=== PATIENT | male | born 1945 | race Caucasian/White ===

== ENCOUNTER 2019-06-10 02:51 | Observation (INO) ==
[2019-06-10 03:15] LABS: Basophils # 0.1 K/mm3 (0-0.2); Basophils % 0.8 % (0.1-2.0); Eosinophils # 0.3 K/mm3 (0.0-0.4); Eosinophils % 4.9 % (0.1-12.0); Hematocrit 50.4 % (42.0-52.0); Hemoglobin 16.5 g/dL (14.1-18.0); Lymphocytes # 2.3 K/mm3 (0.7-4.5); Lymphocytes % 32.9 % (10-50); Mean Corpuscular HGB Conc 32.7 g/dL (31.8-35.4); Mean Corpuscular Volume 91.6 fl (80-94); Mean Platelet Volume 7.4 fl (7.4-10.4); Monocytes # 0.5 K/mm3 (0.1-1.0); Monocytes % 6.6 % (1.7-9.3); Neutrophils # 3.8 K/mm3 (1.8-7.8); Neutrophils % 54.8 % (37.0-80.0); Platelet Count 185 K/mm3 (142-424); Red Cell Distribution Width 13.3 % (11.5-17.5); White Blood Count 6.9 K/mm3 (4.8-10.8)
[2019-06-10 03:23] LABS: Anion Gap 13.4 mEq/L (5-15); Blood Urea Nitrogen 8 mg/dl (9-20); Calcium 9.3 mg/dl (8.4-10.2); Carbon Dioxide 27 mmol/L (22.0-30.0); Chloride 103 mmol/L (98-107); Glucose 92 mg/dl (74-100); Sodium 140 mmol/L (136-145)
[2019-06-10 04:52] LABS: Microscopic, Urine URINE MICROSCOPIC (MICROSCOPIC)
[2019-06-10 04:53] LABS: Appearance,Urine CLEAR (Clear); Bilirubin,Urine Negative (Negative); Blood, Urine Negative (Negative); Color,Urine YELLOW (Yellow); Glucose,Urine (UA) Negative (Negative); Ketones,Urine Negative (Negative); Leukocyte Esterase,Urine Negative (Negative); Protein,Urine Negative (Negative); Specific Gravity, Urine 1.015 (1.005-1.030)
[2019-06-10 04:55] LABS: WBC,Urine Occasional #/hpf (0-3)
--- NOTE | 2019-06-10 05:32 | Emergency Department Note ---
ED Disposition Clinical Impression: Chest pain Qualifiers: Chest pain type: precordial pain Qualified Code(s): R07.2 - Precordial pain Disposition: Admitted as Observation Condition on Discharge: Good Referrals: Provider,Referral, [Referring] - - Critical Care Critical Care Time: No Attestation: On 06/10/19, the high probability of a clinically significant, sudden or life threatening deterioration of the following system(s) required my full and direct attention, intervention and personal management. The time I documented below is in addition to time spent performing reported procedures but includes the following listed in this critical care notation. Medical Decision Making - Medical Records Medical records reviewed: Yes: I reviewed the patient's medical records. - [place] Inquiry Pt receiving controlled substance: No Vital Signs: 06/10/19 03:02 06/10/19 03:08 06/10/19 03:11 Temperature 97.5 F L Temperature Source Oral Pulse Rate [Right Brachial] 83 77 Respiratory Rate 16 Blood Pressure [Right Arm] 146/96 H 143/84 H 113/69 Blood Pressure Mean [Right Arm] 112 103 83 Blood Pressure Source [Right Arm] Automatic Cuff Automatic Cuff Automatic Cuff Blood Pressure Position [Right Arm] Sitting Sitting Sitting 02 Sat by Pulse Oximetry 99 Oxygen Delivery Method Room Air 06/10/19 03:32 Temperature 97.5 F L Temperature Source Oral Pulse Rate [Right Brachial] 68 Respiratory Rate 18 Blood Pressure [Right Arm] 126/76 Blood Pressure Mean [Right Arm] 92 Blood Pressure Source [Right Arm] Automatic Cuff Blood Pressure Position [Right Arm] 02 Sat by Pulse Oximetry 96 Oxygen Delivery Method Room Air - Lab Data Lab results reviewed: Yes: I reviewed the patient's lab results. Lab Results 06/10/19 03:06: WBC 6.9, RBC 5.50, Hgb 16.5, Hct 50.4, MCV 91.6, MCH 29.9, MCHC 32.7, RDW 13.3, Plt Count 185, MPV 7.4, Neut % (Auto) 54.8, Lymph % (Auto) 32.9, [place] % (Auto) 6.6, Eos % (Auto) 4.9, Baso % (Auto) 0.8, Neut # (Auto) 3.8, Lymph # (Auto) 2.3, [place] # (Auto) 0.5, Eos # (Auto) 0.3, Baso # (Auto) 0.1 06/10/19 03:06: Sodium 140, Potassium 3.4 L, Chloride 103, Carbon Dioxide 27, Anion Gap 13.4, BUN 8 L, Creatinine 0.90, Estimated Creat Clear 89, Estimated GFR 83, Est GFR ( Amer) 100, Glucose 92, Calcium 9.3, Troponin I < 0.01 06/10/19 04:24: Urine Color Yellow, Urine Appearance Clear, Urine pH 7.0, Ur Specific [place] 1.015, Urine Protein Negative, Urine Glucose (UA) Negative, Urine Ketones Negative, Urine Blood Negative, Urine Nitrate Negative, Urine Bilirubin Negative, Urine Urobilinogen 4.0, Ur Leukocyte Esterase Negative, Urine WBC Occasional Result diagrams: 06/10/19 03:06 06/10/19 03:06 Orders (Tests/Meds): ED MEDICATIONS Generic Name Dose Route Start Last Admin Trade Name Freq PRN Reason Stop Dose Admin Sodium Chloride 1,000 mls @ 999 mls/hr 06/10/19 03:15 06/10/19 03:26 Sod Chlor 0.9% 1000ml Bag IV 06/10/19 04:15 999 mls/hr .Q1H1M ELBA Administration Discontinued Medications Generic Name Dose Route Start Last Admin Trade Name Freq PRN Reason Stop Dose Admin Nitroglycerin 0.4 mg 06/10/19 03:07 06/10/19 03:26 Nitrostat 0.4mg Sl Tablet SL 06/10/19 03:08 0.4 mg ONCE ONE Administration Nitroglycerin 0.4 mg 06/10/19 03:49 06/10/19 03:51 Nitrostat 0.4mg Sl Tablet SL 06/10/19 03:50 0.4 mg ONCE ONE Administration ORDERS Category Date Time Status XR chest portable Stat Exams 06/10/19 03:07 Taken Troponin I Q3H Lab 06/10/19 06:15 Ordered Troponin I Q3H Lab 06/10/19 09:15 Ordered - Radiology Data #1 Image(s): Chest Image Reviewed: Yes I reviewed the patient's radiology image Preliminary Findings: Abnormal (cm) - ECG Data Tracing #1 Normal Sinus Rhythm: Yes Ischemic changes: non-specific ST-T wave changes Chest Pain HPI - General Chief Complaint: Chest Pain Stated Complaint: cp Time Seen by Provider: 06/10/19 03:40 Mode of Arrival: Wheelchair Source of Information: Patient, Medical Record Limitations: No Limitations Description of Symptoms (Recalled from ER Triage Doc. by RN): Patient reports centralized chest pain that started a couple of hours ago and woke he up form his sleep. Patient reports aching in both arms and a previous PA back in 2018. - History of Present Illness HPI narrative: acute onset of chest tightness which awoke pt and continued till given ntg in ed which relieved pain - hx of cabg in past MD complaint: chest pain indicative of cardiac Onset (ago): hour(s) Duration: now resolved Activity at onset: awoke with symptoms Pain location: substernal Severity: moderate Quality: tightness Pain radiation: none Relieving factors: nitroglycerin Risk Factors for CAD: Family Hx of CAD Treatments prior to or on arrival for Cardiac Chest Pain: none - OSIRIS Score for Non-Stemi Age of Patient: 70-79 years old Heart Rate: 70-89 bpm Systolic Blood Pressure: 140-159 mmHg Serum Creatinine: 0.80-1.19 mg/dl CHF [place] Class: I-No CHF Other Risk Factors: None Non-Stemi Risk Score: 115 - Related Data Prior Cardiac Testing/Procedures: CABG Home Medications Medication Instructions Recorded Confirmed Amlodipine Besylate [Amlodipine 10 mg PO DAILY 06/10/19 06/10/19 10mg Tab] Allergies Allergy/AdvReac Type Severity Reaction Status Date / Time No Known Allergies Allergy Verified 06/10/19 03:25 [facility] History - Hepatitis A Screen Drug use history?: No High risk sexual behaviors?: No History of sexually transmitted infection?: No Currently employed?: No Childcare worker?: No Do you have indoor plumbing?: Yes Do you have electricity?: Yes Attestation statement:: This patient has been screened for Hepatitis A risk factors. I have reviewed the patient's past medical history: Yes - Social History Alcohol Intake: never Occupational Status: retired ROS Obtained: Yes All systems reviewed & no additional complaints - Constitutional Constitutional: Denies fever(s) - Eyes Eyes: Denies change in vision - ENT Ears, Nose, Mouth, and Throat: Denies sore throat - Cardiovascular Cardiovascular: Reports as per HPI, Reports chest pain, Denies dyspnea, Denies radiating jaw, neck or arm pain - Respiratory Respiratory: No cough - Gastrointestinal Gastrointestingal: Denies: abdominal pain - Genitourinary Male Genitourinary: Denies flank pain - Musculoskeletal Musculoskeletal: Denies joint pain, Denies joint swelling - Integumentary/Breasts Skin/Breast: Denies rash - Neurologic Neurologic: Denies focal weakness, Denies seizure-like activity Physical Exam - General General appearance: alert - Head Head exam: normocephalic - Eye Eye exam: Present: PERRL, EOMI. Absent: scleral icterus - ENT ENT exam: Present: mucous membranes moist - Neck Neck exam: Present: trachea midline - Respiratory Respiratory exam: Present: normal lung sounds bilaterally. Absent: respiratory distress - Cardiovascular Cardiovascular exam: Present: regular rate, systolic murmur, +S4 - Abdominal Exam Abdominal exam: Present: soft - Extremities Exam Extremities exam: Present: full ROM - Neurological Exam Neurological exam: Present: alert, oriented X3, CN II-XII intact. Absent: motor sensory deficit - Psychiatric Psychiatric exam: Present: normal affect - Skin Skin exam: Absent: rash
[2019-06-10 06:14] LABS: Chol/HDL Ratio 3.6 (1-3.5)
--- NOTE | 2019-06-10 07:44 | Pharmacy Consult Notes ---
[facility] Pharmacy VTE Monitoring - Patient Demographics Admission date: 06/10/19 Report Date: 06/10/19 Time: 07:44 Allergies/Adverse Reactions: Patient Allergies No Known Allergies Allergy (Verified 06/10/19 03:25) Height: 1.83 m Weight: 102.058 kg Patient Problems: Current Active Problems Chest pain (Acute) - VTE Risk Labs: VTE Related Lab Results Hgb 16.5 g/dL (14.1-18.0) 06/10/19 03:06 Hct 50.4 % (42.0-52.0) 06/10/19 03:06 Plt Count 185 K/mm3 (142-424) 06/10/19 03:06 BUN 8 mg/dl (9-20) L 06/10/19 03:06 Creatinine 0.90 mg/dl (0.66-1.25) 06/10/19 03:06 Estimated Creat Clear 89 mL/min (50-200) 06/10/19 03:06 Was VTE Risk Assessment Performed: Yes VTE Score: 5 VTE Risk Level: Low Risk Clinical Trial Participant: No - Prophylaxis VTE Prophylaxis Ordered?: Yes Types of VTE Prophylaxis: TEDS Knee High
--- NOTE | 2019-06-10 07:51 | Consult Report ---
History of Present Illness Consult date: 06/10/19 Requesting physician: Valdemar George Consult reason: chest pain Chief complaint: chest pain Additional Medical History:: 1. CAD A. [facility], 05/2016, 1. The left main artery distal 40% stenosis 2. The left anterior descending artery has an ostial 70 extending into a proximal 80-90% focal stenosis. The mid LAD has an additional 50% eccentric stenosis preceded by a mild to moderate intramyocardial bridge 3. The circumflex artery is nondominant yet still large vessel and has an ostial 70 were sent stenosis 4. The right coronary artery is dominant and has mid vessel 40% nonflow limiting stenosis 5. The GRIER ventriculogram reveals normal 65% 6. The left ventricular end-diastolic pressure 10 to 15 mmHg IMPRESSION: 1. 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 Normal ejection fraction 4. Normal left ventricular end-diastolic pressure B. 2 vessel CABG, 2017, , Dr. Luciano 2. HTN 3. Remote tobacco use, approximately 7 yrs duration in his early 20's 4. History of right ankle injury and subsequent surgery with recurrent edema 5. First-degree AV block by EKG, 2019 History of present illness: 74-year-old white male with history of bypass 3 years ago presented to the emergency department via private vehicle for episode of chest discomfort that woke him from sleep. He describes it as a sharp pain substernally with some associated chest tightness and radiation to the arms bilaterally. He denies any jaw pain, neck pain, back pain nausea, vomiting or diaphoresis. 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 He denies tobacco use or history of diabetes. He maintains compliance with his medications. Patient was given nitroglycerin in the ER with subsequent resolution of symptoms. Initial troponin is normal and EKG is sinus rhythm with first-degree AV block but no acute ST segment changes. Patient was admitted for further evaluation. Cardiology consulted for evaluation recommendations. [facility] History Medical History: Reports:: Hyperlipidemia, Hypertension, Myocardial Infarction Denies:: Diabetes Mellitus Type 1, Diabetes Mellitus Type 2 *Have you ever received a pneumonia vaccine?: No *Have you received a flu vaccine this season?: No Laterality Cases: Left: Other Other Surgeries: Yes: CABG, Other (SURGERY ON LEFT ROTATOR CUFF) - *Social History Educational Level: Attended High School Smoking Status: Former smoker Alcohol Intake: never *Occupational Status:: retired Household Members: none *Travel in the last 8 weeks: None Family Hx:: No significant family history Meds Home Medications Medication Instructions Recorded Confirmed Type Amlodipine Besylate [Amlodipine 10 mg PO DAILY 06/10/19 06/10/19 History 10mg Tab] Aspirin [Aspirin 81mg chewable 81 mg PO DAILY 06/10/19 06/10/19 History tab] Allergies Allergy/AdvReac Type Severity Reaction Status Date / Time No Known Allergies Allergy Verified 06/10/19 03:25 Review of Systems - Review of Systems Review of systems:: pertinent systems reviewed and negative unless documented below - *Cardiovascular Reports chest pain, Denies shortness of breath - *Respiratory Denies cough, Denies shortness of breath - *Gastrointestinal Denies nausea - *Genitourinary Denies blood in urine - *Musculoskeletal Denies joint pain, Denies back pain - *Neurologic Denies localized weakness, Denies seizure-like activity Exam Vital signs and Labs for Last 24 Hours: Temp Pulse Resp BP Pulse Ox 98.0 F 70 17 134/75 98 06/10/19 06:14 06/10/19 06:19 06/10/19 06:14 06/10/19 06:14 06/10/19 06:06 Laboratory Results - last 24 hr 06/10/19 03:06: WBC 6.9, RBC 5.50, Hgb 16.5, Hct 50.4, MCV 91.6, MCH 29.9, MCHC 32.7, RDW 13.3, Plt Count 185, MPV 7.4, Neut % (Auto) 54.8, Lymph % (Auto) 32.9, [place] % (Auto) 6.6, Eos % (Auto) 4.9, Baso % (Auto) 0.8, Neut # (Auto) 3.8, Lymph # (Auto) 2.3, [place] # (Auto) 0.5, Eos # (Auto) 0.3, Baso # (Auto) 0.1 06/10/19 03:06: Sodium 140, Potassium 3.4 L, Chloride 103, Carbon Dioxide 27, Anion Gap 13.4, BUN 8 L, Creatinine 0.90, Estimated Creat Clear 89, Estimated GF R 83, Est GFR ( Amer) 100, Glucose 92, Calcium 9.3, Troponin I < 0.01 06/10/19 04:24: Urine Color Yellow, Urine Appearance Clear, Urine pH 7.0, Ur Specific [place] 1.015, Urine Protein Negative, Urine Glucose (UA) Negative, Urine Ketones Negative, Urine Blood Negative, Urine Nitrate Negative, Urine Bilirubin Negative, Urine Urobilinogen 4.0, Ur Leukocyte Esterase Negative, Urine WBC Occasional 06/10/19 05:32: Troponin I < 0.01 06/10/19 05:32: Magnesium 2.1, Triglycerides 49, Cholesterol 115 L, LDL Cholesterol Direct 72.91 L, VLDL Cholesterol 10, HDL Cholesterol 32 L, Cholesterol/HDL Ratio 3.6 H I & O for Last 24 hours: Intake & Output 06/07/19 06/08/19 06/09/19 06/10/19 11:59 11:59 11:59 11:59 Intake Total 1000 / 1000 Balance 1000 / 1000 Weight 225 lb - *Routine HEENT Exam Head: Present: normocephalic Eye: Present: EOMI, PERRL ENT: Present: mucous membranes moist - *Routine Neck Exam Present: supple. Absent: JVD, carotid bruit - *Routine Respiratory Exam Present: CTA bilaterally. Absent: accessory muscle use, rales, rhonchi, wheezes - *Routine Cardiovascular Exam Present: RRR. Absent: murmur, gallop, rubs - *Routine Abdominal Exam Present: soft. Absent: tenderness, distended, guarding - *Routine Extremities Exam Present: edema. Absent: calf tenderness - *Routine Neurological Exam Present: alert, oriented X3, moving all extremities Assessment and Plan (1) Chest pain Current visit: Yes Status: Acute Qualifiers: Chest pain type: precordial pain Qualified Code(s): R07.2 - Precordial pain Category: Medical Code(s): R07.9 - Chest pain, unspecified (2) CAD (coronary artery disease) Current visit: Yes Status: Acute Category: Medical Code(s): I25.10 - Atherosclerotic heart disease of [place] coronary artery without angina pectoris (3) Hypertension Current visit: Yes Status: Acute Category: Medical Code(s): I10 - Essential (primary) hypertension (4) Hyperlipidemia Current visit: Yes Status: Acute Category: Medical Code(s): E78.5 - Hyperlipidemia, unspecified - Assessment and plan all Dx Assessment and Plan for all problems:: 1. Chest pain reminiscent of his prior angina before his bypass which esolved with sublingual nitroglycerin. Initial troponin is normal, EKG without acute changes and patient has been active without exertional symptoms recently. Echocardiogram pending this morning but if normal, would favor medical therapy with additional treatment including PPI for possible reflux or GERD. Patient is on amlodipine therapy along with aspirin therapy, would recommend addition of beta-mitch to his medical regimen. If second troponin is normal patient could be discharged home for follow-up as an outpatient. 2. Hyperlipidemia, recommend addition of statin therapy if tolerable.
--- NOTE | 2019-06-10 07:54 | History & Physical Report ---
*Admission Date: 06/10/19 *Chief complaint: Chest pain *History of present illness: 74-year-old white male with history of two-vessel bypass 3 years ago presented to the emergency department via private vehicle for episode of chest discomfort that woke him from sleep around 2 AM. He describes it as a sharp pain substernally with some associated chest tightness and radiation to the arms bilaterally. Chest pain resolved with a single dose of nitroglycerin. He denies any jaw pain, neck pain, back pain nausea, vomiting or diaphoresis. 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 He denies tobacco use or history of diabetes. He maintains compliance with his medications. Patient was given nitroglycerin in the ER with subsequent resolution of symptoms. Initial troponin is normal and EKG is sinus rhythm with first-degree AV block but no acute ST segment changes. [facility] History I have reviewed the patient's past medical history: Yes Medical History: Reports:: Hyperlipidemia, Hypertension, Myocardial Infarction Denies:: Diabetes Mellitus Type 1, Diabetes Mellitus Type 2 *Have you ever received a pneumonia vaccine?: No *Have you received a flu vaccine this season?: No Laterality Cases: Left: Other Other Surgeries: Yes: CABG (Two-vessel), Other (SURGERY ON LEFT ROTATOR CUFF) - *Social History Educational Level: Attended High School Smoking Status: Former smoker Alcohol Intake: never *Occupational Status:: retired Household Members: none *Travel in the last 8 weeks: None Family Hx:: Non-contributory Review of Systems - Review of Systems Review of systems:: pertinent systems reviewed and negative unless documented below - Constitutional Denies body ache(s), Denies chills - *Cardiovascular Reports chest pain, Reports chest pain at rest, Reports leg swelling (Chronic in the right lower leg), Denies chest pain with activity, Denies leg pain with activity, Denies shortness of breath, Denies shortness of breath with activity - *Respiratory Denies change in phlegm color, Denies chest congestion, Denies cough, Denies shortness of breath - *Gastrointestinal Denies abdominal pain, Denies belching, Denies bloating - *Neurologic Denies localized weakness, Denies seizure-like activity Meds Home Medications Medication Instructions Recorded Confirmed Type Amlodipine Besylate [Amlodipine 10 mg PO DAILY 06/10/19 06/10/19 History 10mg Tab] Aspirin [Aspirin 81mg chewable 81 mg PO DAILY 06/10/19 06/10/19 History tab] Metoprolol Succinate [Toprol XL 25 mg PO DAILY #30 tab.er.24h 06/10/19 Rx 25mg tablet] Nitroglycerin 0.4 mg SL Q5MINP PRN #30 tab.subl 06/10/19 Rx Allergies Allergy/AdvReac Type Severity Reaction Status Date / Time No Known Allergies Allergy Verified 06/10/19 03:25 Exam Vital signs and Labs for Last 24 Hours: Temp Pulse Resp BP Pulse Ox 98.0 F 70 17 134/75 98 06/10/19 06:14 06/10/19 06:19 06/10/19 06:14 06/10/19 06:14 06/10/19 06:06 Laboratory Results - last 24 hr 06/10/19 03:06: WBC 6.9, RBC 5.50, Hgb 16.5, Hct 50.4, MCV 91.6, MCH 29.9, MCHC 32.7, RDW 13.3, Plt Count 185, MPV 7.4, Neut % (Auto) 54.8, Lymph % (Auto) 32.9, [place] % (Auto) 6.6, Eos % (Auto) 4.9, Baso % (Auto) 0.8, Neut # (Auto) 3.8, Lymph # (Auto) 2.3, [place] # (Auto) 0.5, Eos # (Auto) 0.3, Baso # (Auto) 0.1 06/10/19 03:06: Sodium 140, Potassium 3.4 L, Chloride 103, Carbon Dioxide 27, Anion Gap 13.4, BUN 8 L, Creatinine 0.90, Estimated Creat Clear 89, Estimated GFR 83, Est GFR ( Amer) 100, Glucose 92, Calcium 9.3, Troponin I < 0.01 06/10/19 04:24: Urine Color Yellow, Urine Appearance Clear, Urine pH 7.0, Ur Specific [place] 1.015, Urine Protein Negative, Urine Glucose (UA) Negative, Urine Ketones Negative, Urine Blood Negative, Urine Nitrate Negative, Urine Bilirubin Negative, Urine Urobilinogen 4.0, Ur Leukocyte Esterase Negative, Urine WBC Occasional 06/10/19 05:32: Troponin I < 0.01 06/10/19 05:32: Magnesium 2.1, Triglycerides 49, Cholesterol 115 L, LDL Cholesterol Direct 72.91 L, VLDL Cholesterol 10, HDL Cholesterol 32 L, Cholesterol/HDL Ratio 3.6 H I & O for Last 24 hours: Intake & Output 06/07/19 06/08/19 06/09/19 06/10/19 11:59 11:59 11:59 11:59 Intake Total 1000 / 1000 Balance 1000 / 1000 Weight 225 lb - Constitutional no acute distress - *Routine HEENT Exam Head: Present: normocephalic Eye: Present: EOMI ENT: Present: mucous membranes moist - *Routine Neck Exam Present: supple, full ROM. Absent: JVD, carotid bruit - *Routine Respiratory Exam Present: CTA bilaterally - *Routine Cardiovascular Exam Present: RRR, Normal S1, Normal S2 - *Routine Abdominal Exam Present: soft, normoactive bowel sounds - *Routine Extremities Exam Present: edema (trace right ankle), pulses intact. Absent: calf tenderness - *Routine Skin Exam Present: intact - *Routine Neurological Exam Present: alert, oriented X3, CN II-XII intact Assessment and Plan (1) Chest pain Status: Acute Qualifiers: Chest pain type: precordial pain Qualified Code(s): R07.2 - Precordial pain Category: Medical Code(s): R07.9 - Chest pain, unspecified (2) CAD (coronary artery disease) Status: Acute Category: Medical Code(s): I25.10 - Atherosclerotic heart disease of [place] coronary artery without angina pectoris (3) Hypertension Status: Acute Category: Medical Code(s): I10 - Essential (primary) hypertension - Assessment and plan all Dx Assessment and Plan for all problems:: 1. Serial tones to rule out [place] 2. Echocardiogram 3. Cardiology consulted and appreciate the recommendations. If patient rules out for [place] and ejection fraction is normal will discharge home with addition of beta-blockers and PRN nitroglycerin
--- NOTE | 2019-06-10 10:41 | Discharge Summary ---
General - General Admission date:: 06/10/19 Discharge date: 06/10/19 HPI HPI: 74-year-old white male with history of two-vessel bypass 3 years ago presented to the emergency department via private vehicle for episode of chest discomfort that woke him from sleep around 2 AM. He describes it as a sharp pain substernally with some associated chest tightness and radiation to the arms bilaterally. Chest pain resolved with a single dose of nitroglycerin. He denies any jaw pain, neck pain, back pain nausea, vomiting or diaphoresis. 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 He denies tobacco use or history of diabetes. He maintains compliance with his medications. Patient was given nitroglycerin in the ER with subsequent resolution of symptoms. Initial troponin is normal and EKG is sinus rhythm with first-degree AV block but no acute ST segment changes. Hospital Course Hospital Course: Patient was admitted. He ruled out for NH with serial troponins. Echocardiogram showed EF 45-50%. Cardiology was consulted and redommendations were made. Zana was discharged to home with medication changes. Follow up in 3 days Objective Vital signs: Temp Pulse Resp BP Pulse Ox 98 F 67 16 144/88 H 97 06/10/19 08:00 06/10/19 08:00 06/10/19 08:00 06/10/19 08:00 06/10/19 08:00 no acute distress - *Routine HEENT Exam Head: Present: normocephalic Eye: Present: EOMI, PERRL ENT: Present: mucous membranes moist - *Routine Neck Exam Present: supple - *Routine Respiratory Exam Present: CTA bilaterally - *Routine Cardiovascular Exam Present: RRR - *Routine Abdominal Exam Present: soft, normoactive bowel sounds. Absent: tenderness - *Routine Extremities Exam Absent: cyanosis, clubbing, edema - *Routine Skin Exam Present: warm. Absent: rash Results Labs on day of discharge: Labs from last 24 hours 06/10/19 06/10/19 06/10/19 09:00 05:32 05:32 WBC RBC Hgb Hct MCV MCH MCHC RDW Plt Count MPV Neut % (Auto) Lymph % (Auto) Isabella % (Auto) Eos % (Auto) Baso % (Auto) Neut # (Auto) Lymph # (Auto) Isabella # (Auto) Eos # (Auto) Baso # (Auto) Sodium Potassium Chloride Carbon Dioxide Anion Gap BUN Creatinine Estimated Creat Clear Estimated GFR Est GFR ( Amer) Glucose Calcium Magnesium 2.1 Troponin I < 0.01 < 0.01 Triglycerides 49 Cholesterol 115 L LDL Cholesterol Direct 72.91 L VLDL Cholesterol 10 HDL Cholesterol 32 L Cholesterol/HDL Ratio 3.6 H Urine Color Urine Appearance Urine pH Ur Specific [place] Urine Protein Urine Glucose (UA) Urine Ketones Urine Blood Urine Nitrate Urine Bilirubin Urine Urobilinogen Ur Leukocyte Esterase Urine WBC 06/10/19 06/10/19 06/10/19 04:24 03:06 03:06 WBC 6.9 RBC 5.50 Hgb 16.5 Hct 50.4 MCV 91.6 MCH 29.9 MCHC 32.7 RDW 13.3 Plt Count 185 MPV 7.4 Neut % (Auto) 54.8 Lymph % (Auto) 32.9 Isabella % (Auto) 6.6 Eos % (Auto) 4.9 Baso % (Auto) 0.8 Neut # (Auto) 3.8 Lymph # (Auto) 2.3 Isabella # (Auto) 0.5 Eos # (Auto) 0.3 Baso # (Auto) 0.1 Sodium 140 Potassium 3.4 L Chloride 103 Carbon Dioxide 27 Anion Gap 13.4 BUN 8 L Creatinine 0.90 Estimated Creat Clear 89 Estimated GFR 83 Est GFR ( Amer) 100 Glucose 92 Calcium 9.3 Magnesium Troponin I < 0.01 Triglycerides Cholesterol LDL Cholesterol Direct VLDL Cholesterol HDL Cholesterol Cholesterol/HDL Ratio Urine Color Yellow Urine Appearance Clear Urine pH 7.0 Ur Specific [place] 1.015 Urine Protein Negative Urine Glucose (UA) Negative Urine Ketones Negative Urine Blood Negative Urine Nitrate Negative Urine Bilirubin Negative Urine Urobilinogen 4.0 Ur Leukocyte Esterase Negative Urine WBC Occasional DS: Diagnosis - Discharge Diagnosis (1) Chest pain Status: Acute (2) CAD (coronary artery disease) Status: Acute (3) Hypertension Status: Acute (4) Hyperlipidemia Status: Acute Discharge Plan - Patient Discharge Instructions ACTIVITY: Continue current activity DIET: continue same diet Patient Instructions: DI for Chest Pain - Follow up Plan Follow up with: Valdemar George MD [Primary Care Provider] - 06/13/19 Disposition: Home, Self-[facility] Medications: Home Medications Medication Instructions Recorded Confirmed Type Amlodipine Besylate [Amlodipine 10 mg PO DAILY 06/10/19 06/10/19 History 10mg Tab] Aspirin [Aspirin 81mg chewable 81 mg PO DAILY 06/10/19 06/10/19 History tab] Metoprolol Succinate [Toprol XL 25 mg PO DAILY #30 tab.er.24h 06/10/19 Rx 25mg tablet] Nitroglycerin 0.4 mg SL Q5MINP PRN #30 tab.subl 06/10/19 Rx Prescriptions/Medication Reconciliation: New Nitroglycerin 0.4 mg SL Q5MINP PRN #30 tab.subl PRN Reason: Chest Pain Metoprolol Succinate [Toprol XL 25mg tablet] 25 mg PO DAILY #30 tab.er.24h Continued Aspirin [Aspirin 81mg chewable tab] 81 mg PO DAILY Amlodipine Besylate [Amlodipine 10mg Tab] 10 mg PO DAILY - Problem Reconciliation Problems Reviewed?: Yes
--- NOTE | 2019-06-10 17:32 | Cardiology Report ---
APPROVED REPORT EXAM: Comprehensive 2D, Doppler, and color-flow Echocardiogram Concert [facility] Manager: Kimberly Butcher CRT Ht: 6 ft 0 in Wt: 210lbs BSA: 2.18 BP: 113/69 mmHg Indications: Hyperlipidemia, Hypertension/HDD, CABG 2D Dimensions LVOT 2.03 cm (M/F) 1.5-2.5 M-Mode Dimensions RVDd 4.17 cm (0.9-2.6)LVDd 4.09 cm (3.5-5.7) LVDs 2.89 cm (3.5-5.7)IVSd 2.49 cm (0.6-1.1) PWd 0.60 cm (0.6-1.1)EF (Teich) 56.80% FS 29.30% EDV (Teich) 73.80 mL ESV (Teich) 31.90 mL LV Diastology E/A Ratio 0.72 Mitral Valve MV A Velocity 79.00 (40-130 cm/s) Left Ventricle Left atrium is mildly enlarged, left ventricle is normal size, mild concentric left ventricular hypertrophy, visually estimated ejection fraction 55% with no regional wall motion abnormality, endocardial surfaces are poorly visualized, there is abnormal septal motion, grade 1 diastolic dysfunction seen without tissue Doppler evidence of raise left atrial pressure. Right Ventricle Right atrium and right ventricular normal size and contractility. Aortic Valve Aortic valve is minimally thickened and fibrosed, there is no aortic stenosis or aortic insufficiency. Mitral Valve Mitral valve is minimally thickened, there is mild mitral regurgitation. Tricuspid Valve Tricuspid valve is grossly normal, there is mild tricuspid regurgitation, tricuspid regurgitation jet velocity is inadequate for calculation of the right ventricular systolic pressure. Pulmonic Valve Pulmonic valve is poorly visualized. Great Vessels Aortic root is normal size. Pericardium No significant pericardial effusion noted. Conclusion 1. Mildly enlarged left atrium, normal left ventricular size, mild concentric left ventricular hypertrophy, visually estimated ejection fraction of 55%, there is abnormal septal motion, grade 1 diastolic dysfunction seen without tissue Doppler evidence of raise left atrial pressure. 2. Mild mitral and tricuspid regurgitation. 3. No significant pericardial effusion noted. Electronically signed by : Vinay Zarco, 06/10/2019 17:32:11
--- NOTE | 2019-06-11 08:10 | Electrocardiograph Report ---
APPROVED REPORT Exam: Resting ECG HR:81 bpm ECG Measurements Heart Rate 81 AXES NM 216 P 20 QRSd 100 QRS 13 QT 386 T-22 QTc 448 <Conclusion> Sinus rhythm with 1st degree AV block Isolated, nonsignificant Q waves in III and aVF Abnormal ECG Electronically signed by : Valdemar Acosta, 06/11/2019 08:09:52
== END 2019-06-10 13:00 | disposition home or self-care (01) ==
LOC: 2ND 02:51 → ER 02:51 → 2ND 06:16
PROVIDERS: ADMIT Emergency Medicine; ATTEND Family Medicine
CPT/HCPCS: 36415; 71010; 71045; 80048; 80061; 81001; 83735; 84484; 85025; 93005; 93306; 96365; 99284; G0378

== ENCOUNTER 2021-10-05 11:07 | Emergency (ER) | payer MEDICARE, OTHER, SELFPAY ==
[2021-10-05 11:08] VITALS: BP 169/100; PULSE 75; RESP 20; TEMP 36.6; O2SAT 98; BMI 31.1
--- NOTE | 2021-10-05 11:17 | CT_ITS ---
FINAL REPORT TECHNIQUE: Axial CT images of the abdomen and pelvis were obtained without intravenous contrast. Coronal reformatted images were also obtained.This study was performed with techniques to keep radiation doses as low as reasonably achievable (ALARA). Individualized dose reduction techniques using automated exposure control or adjustment of mA and/or kV according to the patient's size were employed. CLINICAL HISTORY: left flank pain, difficulty urinating COMPARISON: 01/08/2016 FINDINGS: Abdomen: There is a 5 mm right lower lobe pulmonary nodule which was not seen on the prior exam. There is rounded atelectasis in the left lower lobe. There is bilateral, left greater than right, mild to moderate hydronephrosis. There are no obstructing renal stones. A hypodense left renal lesion is unchanged and likely a cyst. The gallbladder is surgically absent. The spleen is enlarged measuring 15 cm in length. The remaining solid organs have an unremarkable, unenhanced appearance. No lymphadenopathy or ascites is seen. No inflammatory process is identified. There is no evidence of small-bowel obstruction. Pelvis: The appendix is normal. There is diverticulosis without evidence of diverticulitis. Images of the pelvis reveal no evidence of ureteral dilation or ureteral stone. The urinary bladder is distended, extending into the lower abdomen. There are several small stones layering in the posterior urinary bladder. The prostate is very large and pressing on the bladder base. There is no pelvic lymphadenopathy or free fluid. On the bone window images there is a sclerotic lesion in the left sacrum which is stable. IMPRESSION: 1. Bilateral [id number] hydronephrosis to the level of a very distended urinary bladder. No obstructing stone 2. Very large prostate. Recommend correlation with PSA. 3. Small bladder stones. 4. Splenomegaly. Reviewed, Interpreted and Dictated by Roberta Stinson MD Transcribed by Danitza Epstein Authenticated and [facility]
--- NOTE | 2021-10-05 11:19 | HMH.EDGENADL ---
ED Disposition Clinical Impression: Urinary retention, Prostate hyperplasia with urinary obstruction Disposition: Home, Self-Care Condition on Discharge: Good Instructions: How to Care for Your Mcknight Catheter -- Male, DI for Urinary Retention in Men Additional Instructions: follow up urology call for appt Prescriptions: Tamsulosin HCl [Flomax 0.4mg capsule] 0.4 mg PO HS #15 cap Transmission Status: Pending to [facility] #[id number] Referrals: Db Gipson MD [Primary Care Provider] - Jean Paul Vázquez MD [Staff Physician] - - Critical Care Critical Care Time: No Attestation: On 10/05/21, the high probability of a clinically significant, sudden or life threatening deterioration of the following system(s) required my full and direct attention, intervention and personal management. The time I documented below is in addition to time spent performing reported procedures but includes the following listed in this critical care notation. Medical Decision Making - Medical Records Medical records reviewed: Yes: I reviewed the patient's medical records. - Jaiden Inquiry Pt receiving controlled substance: No Vital Signs: 10/05/21 11:08 10/05/21 12:00 Temperature 97.9 F Temperature Source Oral Pulse Rate [Left Radial] 75 Respiratory Rate 20 Blood Pressure 117/72 Blood Pressure [Right Arm] 169/100 H Blood Pressure Mean 87 Blood Pressure Mean [Right Arm] 123 Blood Pressure Source [Right Arm] Automatic Cuff Blood Pressure Position [Right Arm] Sitting 02 Sat by Pulse Oximetry 98 Oxygen Delivery Method Room Air - Lab Data Lab Results 10/05/21 11:20: Sodium 139, Potassium 4.1, Chloride 104, Carbon Dioxide 29, Anion Gap 10.1, BUN 8 L, Creatinine 1.00, Estimated Creat Clear 89, Estimated GFR 73, Est GFR ( Amer) 88, Glucose 126 H, Calcium 9.2 10/05/21 11:20: WBC 5.8, RBC 5.24, Hgb 16.7, Hct 47.7, MCV 90.9, MCH 32.0 H, MCHC 35.1, RDW 13.2, Plt Count 189, MPV 7.2 L, Neut % (Auto) 74.8, Lymph % (Auto) 17.0, [place] % (Auto) 5.9, Eos % (Auto) 1.4, Baso % (Auto) 1.0, Neut # (Auto) 4.3, Lymph # (Auto) 1.0, [place] # (Auto) 0.3, Eos # (Auto) 0.1, Baso # (Auto) 0.1 10/05/21 11:35: Urine Color Yellow, Urine Appearance Clear, Urine pH 6.5, Ur Specific [place] 1.010, Urine Protein Negative, Urine Glucose (UA) Negative, Urine Ketones Negative, Urine Blood Negative, Urine Nitrate Negative, Urine Bilirubin Negative, Urine Urobilinogen 0.2, Ur Leukocyte Esterase Negative, Urine RBC None, Urine WBC None, Ur Squamous Epith Cells None, Urine Bacteria None Result diagrams: 10/05/21 11:20 10/05/21 11:20 Orders (Tests/Meds): ED MEDICATIONS Discontinued Medications Generic Name Dose Route Start Last Admin Trade Name Freq PRN Reason Stop Dose Admin Hydromorphone HCl 0.5 mg 10/05/21 11:17 10/05/21 12:34 Hydromorphone 2mg/Ml Syringe IV 10/05/21 11:18 Not Given ONCE ONE Ketorolac Tromethamine 30 mg 10/05/21 11:30 10/05/21 11:47 Ketorolac 30mg/Ml Vial IV 10/05/21 11:31 30 mg ONCE ONE Administration Ondansetron HCl 8 mg 10/05/21 11:18 10/05/21 11:47 Ondansetron 4mg/2ml Vial IV 10/05/21 11:19 8 mg ONCE ONE Administration - Reevaluation(s) Time: 12:34 (reeval, vss, appears well, abd s/nt, ok with plan to rx and f/u urology) General Adult HPI - General Stated complaint: kidney pain, unable to urinate Time Seen by Provider: 10/05/21 11:19 - History of Present Illness HPI narrative: mod to sev left low back pain assoc with urinary urgency and unable to urinate this am Onset (ago): hour(s) Radiation: non-radiation Severity: moderate Consistency: constant Exacerbating factors: none Associated symptoms: denies other symptoms - Related Data Home Medications Medication Instructions Recorded Confirmed Amlodipine Besylate [Amlodipine 10 mg PO DAILY 06/10/19 06/10/19 10mg Tab] Aspirin [Aspirin 81mg chewable 81 mg PO DAILY 06/10/19 06/10/19 tab] Pre
[2021-10-05 11:39] LABS: Basophils # 0.1 K/mm3 (0-0.2); Eosinophils # 0.1 K/mm3 (0.0-0.4); Eosinophils % 1.4 % (0.1-12.0); Hematocrit 47.7 % (42.0-52.0); Hemoglobin 16.7 g/dL (14.1-18.0); Mean Corpuscular HGB Conc 35.1 g/dL (31.8-35.4); Mean Corpuscular Volume 90.9 fl (80-94); Mean Platelet Volume 7.2 fl (7.4-10.4); Monocytes # 0.3 K/mm3 (0.1-1.0); Monocytes % 5.9 % (1.7-9.3); Neutrophils # 4.3 K/mm3 (1.8-7.8); Neutrophils % 74.8 % (37.0-80.0); Platelet Count 189 K/mm3 (142-424); Red Blood Count 5.24 M/mm3 (4.60-6.20); Red Cell Distribution Width 13.2 % (11.5-17.5); White Blood Count 5.8 K/mm3 (4.8-10.8)
[2021-10-05 11:44] LABS: Anion Gap 10.1 mEq/L (5-15); Blood Urea Nitrogen 8 mg/dl (9-20); Calcium 9.2 mg/dl (8.4-10.2); Carbon Dioxide 29 mmol/L (22.0-30.0); Chloride 104 mmol/L (98-107); Creatinine Clearance Estimated 89 mL/min (50-200); Estimated Glomerular Filt Rate 73 ml/min (>60); GFR (African American) 88 ML/MIN (>60); Glucose 126 mg/dl (74-100); Potassium 4.1 mmoL/L (3.5-5.1); Sodium 139 mmol/L (136-145)
--- NOTE | 2021-10-05 11:49 | PC.NURSE ---
pt had 900cc emptied after ham cath insertion, pt states he feels alot better
[2021-10-05 11:50] LABS: Appearance,Urine CLEAR (Clear); Bilirubin,Urine Negative (Negative); Blood, Urine Negative (Negative); Color,Urine YELLOW (Yellow); Glucose,Urine (UA) Negative (Negative); Ketones,Urine Negative (Negative); Leukocyte Esterase,Urine Negative (Negative); Microscopic, Urine URINE MICROSCOPIC (MICROSCOPIC); Nitrate,Urine Negative (Negative); PH,Urine 6.5 (5.0-8.5); Protein,Urine Negative (Negative); Urobilinogen,Urine 0.2 EU/dl (0.2)
--- NOTE | 2021-10-05 11:51 | PC.NURSE ---
talked with Neri LEES about further poc
[2021-10-05 12:00] VITALS: BP 117/72
--- NOTE | 2021-10-05 12:33 | PC.NURSE ---
ER MD at speaking with patient regarding test results, update on POC.
[2021-10-05 13:22] VITALS: BP 109/73; PULSE 64; RESP 18; TEMP 36.7; O2SAT 100
== END 2021-10-05 13:25 | disposition home or self-care (01) ==
PROVIDERS: Emergency Provider Emergency Medicine; PCP Family Medicine
DX: R33.8 Other retention of urine (principal); R39.15 Urgency of urination; N40.0 Benign prostatic hyperplasia without lower urinary tract symptoms; M54.50 Low back pain, unspecified; I10 Essential (primary) hypertension; I25.2 Old myocardial infarction; N23 Unspecified renal colic; E78.5 Hyperlipidemia, unspecified; Z95.1 Presence of aortocoronary bypass graft; Z79.82 Long term (current) use of aspirin; Z87.891 Personal history of nicotine dependence
CPT/HCPCS: 51702; 74176; 80048; 81001; 85025; 96374; 96375; 99285; J2405

== ENCOUNTER → 2021-10-19 15:00 | Outpatient (CLI) | payer MEDICARE, SELFPAY ==
[2021-10-19 18:46] LABS: Prostate Specific Ag Screen 8.7 ng/ml (0.0-4.0)
== END ==
PROVIDERS: PCP Family Medicine; Visit Provider Urology
DX: Z12.5 Encounter for screening for malignant neoplasm of prostate (principal)
CPT/HCPCS: 36415; G0103

== ENCOUNTER 2022-01-28 14:15 | Observation (INO) | payer MEDICARE, SELFPAY ==
[2022-01-28] VITALS (11 sets, daily range): BP systolic 86–155; BP diastolic 50–95; PULSE 60–85; RESP 12–20; TEMP 36.3–36.6; O2SAT 92–100; BMI 30.8; BMI 30.4
--- NOTE | 2022-01-28 14:12 | ECG_ITS ---
APPROVED REPORT Exam: Resting ECG HR:78 bpm ECG Measurements Heart Rate 78 AXES WA 195 P 7 QRSd 103 QRS 4 QT 377 T 16 QTc 411 Conclusion SINUS RHYTHM INFERIOR MYOCARDIAL INFARCTION , PROBABLY OLD [40+ ms Q WAVE AND/OR ST/T ABNORMALITY IN II/aVF] ABNORMAL ECG UNCONFIRMED REPORT Electronically signed by : Valdemar Acosta MD 01/29/2022 21:14:39
--- NOTE | 2022-01-28 14:21 | XR_ITS ---
FINAL REPORT CLINICAL HISTORY: chest pain COMPARISON: May 2019 FINDINGS: There is mild cardiomegaly. There are multiple sternotomy wires. The mediastinum is within normal limits. There are chronic changes in the lung bases. There is no acute cardiopulmonary process. There is no pleural effusion. There is no pneumothorax. The bony thorax is intact. IMPRESSION: No acute cardiopulmonary process. Reviewed, Interpreted and Dictated by Arnav Villafana MD Transcribed by Caio Garcia Authenticated and [facility]
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
[2022-01-28 14:30] LABS: Basophils # 0.1 K/mm3 (0-0.2); Basophils % 1.1 % (0.1-2.0); Eosinophils # 0.2 K/mm3 (0.0-0.4); Eosinophils % 3.4 % (0.1-12.0); Hematocrit 48.5 % (42.0-52.0); Hemoglobin 15.9 g/dL (14.1-18.0); Lymphocytes % 17.9 % (10-50); Mean Corpuscular HGB Conc 32.9 g/dL (31.8-35.4); Mean Corpuscular Hemoglobin 31.4 pg (27.0-31.2); Mean Corpuscular Volume 95.6 fl (80-94); Mean Platelet Volume 7.9 fl (7.4-10.4); Monocytes # 0.3 K/mm3 (0.1-1.0); Monocytes % 6.4 % (1.7-9.3); Neutrophils # 3.8 K/mm3 (1.8-7.8); Neutrophils % 71.1 % (37.0-80.0); Platelet Count 171 K/mm3 (142-424); Red Blood Count 5.07 M/mm3 (4.60-6.20); Red Cell Distribution Width 13.7 % (11.5-17.5); White Blood Count 5.3 K/mm3 (4.8-10.8)
[2022-01-28 14:38] LABS: Anion Gap 13.8 mEq/L (5-15); Blood Urea Nitrogen 9 mg/dl (9-20); Calcium 9.1 mg/dl (8.4-10.2); Carbon Dioxide 30 mmol/L (22.0-30.0); Chloride 100 mmol/L (98-107); Creatinine Clearance Estimated 80 mL/min (50-200); Estimated Glomerular Filt Rate 65 ml/min (>60); GFR (African American) 79 ML/MIN (>60); Glucose 129 mg/dl (74-100); Potassium 3.8 mmoL/L (3.5-5.1); Sodium 140 mmol/L (136-145)
--- NOTE | 2022-01-28 14:43 | PC.NURSE ---
1440- repeat bp after nitro SL x1 tablet 86/50 pt rating pain 4/10 notified ER MD of pt bp after nitro tablet x1 ER MD gave verbal order for IVF bolus NS 1L
--- NOTE | 2022-01-28 14:45 | PC.NURSE ---
notified CV lab of echo order
[2022-01-28 14:54] LABS: Troponin I < 0.01 ng/ml (0.00-0.034)
--- NOTE | 2022-01-28 14:55 | PC.NURSE ---
cv lab staff at for echo
--- NOTE | 2022-01-28 14:57 | PC.NURSE ---
formation testing operator paging dr. koch.
--- NOTE | 2022-01-28 14:59 | PC.NURSE ---
BENY EUBANKS speaking with dr. koch.
--- NOTE | 2022-01-28 15:09 | PC.NURSE ---
notified care management of admission, spoke with denzel. admitted per dr. hayes
[2022-01-28 15:25] LABS: Coronavirus 19, PCR Not Detected (NotDetected); Influenza A, PCR Not Detected (NotDetected); Influenza B, PCR Not Detected (NotDetected)
--- NOTE | 2022-01-28 15:37 | PC.NURSE ---
checked on pt at this time, notified pt we are waiting on covid swab results and then will get pt transferred to assigned room on second floor. Pt states no needs at this time. Call light within reach
--- NOTE | 2022-01-28 16:09 | PC.NURSE ---
report called to perry verdin states she will send staff down to transport pt.
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
[2022-01-28 19:21] LABS: Troponin I < 0.01 ng/ml (0.00-0.034)
--- NOTE | 2022-01-28 19:24 | PC.NURSE ---
Pt is a new admit. He tolerated his diet well. He took a shower once he was settled in. He has not complained of any pain, or need anything at this time. He walked to the bathroom independently.
[2022-01-28 22:16] LABS: Troponin I < 0.01 ng/ml (0.00-0.034)
[2022-01-29 01:00] VITALS: PULSE 80
[2022-01-29 04:01] VITALS: BP 106/69; PULSE 89; RESP 18; TEMP 36.5; O2SAT 94
[2022-01-29 04:05] VITALS: BMI 30.4
[2022-01-29 05:00] VITALS: PULSE 70
--- NOTE | 2022-01-29 06:08 | PC.NURSE ---
pt is A&OX4. no acute changes since previous assessment. no c/o chest pain this shift. CB in reach.
--- NOTE | 2022-01-29 07:14 | EXP.DC.SUM ---
General Admission date:: 01/28/22 Discharge date: 01/29/22 HPI HPI HPI: Mr. Whitney is a 76-year-old male with significant cardiac history. History of CABG, CAD, hypertension, hyperlipidemia, BPH who presented to the ER this afternoon with onset of chest pain. States he has had lower sternal pain since earlier this morning accompanied by shortness of breath and nausea. It began after a syncopal episode when he was trying to walk across the room. States he passed out and thinks he might have fallen forward. His slapped him around and woke him up . He was back to baseline mentation by the time he came to the ER. He has had a history of a heart attack with double bypass surgery 4 to 5 years ago. Surgery performed at . Pain is similar to his previous [place], has not seen a environmental services lead in several years and has not had problems since his bypass surgery. Does not take any nitroglycerin. Took aspirin at home because of the pain. Pain on arrival 09/19. Denies any radiation down his arms. No confusion, headache, diarrhea or vomiting. Initial troponin negative. Medicine consulted for admission and observation overnight with serial enzymes After arriving to the floor, states that he is feeling better with no pain at this time. Denies any shortness of breath. EKG reviewed, chronic changes but no acute ST abnormalities. Hospital Course Hospital Course Hospital Course: Mr. Whitney is a 76-year-old male with history of CABG 4 to 5 years ago at .? Admitted for anginal symptoms.? Monitored overnight on telemetry. No further events of chest pain. Serial troponins remained undetectable. No EKG changes on admission. At this time patient is medically stable for discharge home. Recommend follow-up with cardiology as an outpatient. Problems addressed as follows: Anginal pain History of CABG x2 CAD -Admitted for suspected anginal pain. Serial troponins monitored, undetectable. EKG reassuring on admission. Patient stable, continue home medication regimen. Plan for follow-up with cardiology in the coming weeks. Pain suspicious for noncardiac etiology, differential diagnosis includes GERD, musculoskeletal pain from fall/syncope, or other atypical chest pain. Hypertension: Continued home amlodipine and metoprolol Hyperlipidemia: Lipid panel obtained, LDL 87. Goal LDL less than 55. Increase Lipitor to 40 mg nightly. Needs repeat monitoring in 6 to 8 weeks. BPH: Asymptomatic, continue tamsulosin during hospitalization. Medically stable for discharge home. Updated on medication changes Exam Data for Last 24 hours Vital signs and Labs for Last 24 Hours: Temp Pulse Resp BP Pulse Ox 97.7 F 70 18 106/69 L 94 L 01/29/22 04:01 01/29/22 05:00 01/29/22 04:01 01/29/22 04:01 01/29/22 04:01 Laboratory Results - last 24 hr 01/28/22 14:00: SARS-CoV-2 (PCR) Not detected, Influenza A Untype (PCR) Not detected, Influenza Type B (PCR) Not detected 01/28/22 14:15: WBC 5.3, RBC 5.07, Hgb 15.9, Hct 48.5, MCV 95.6 H, MCH 31.4 H, MCHC 32.9, RDW 13.7, Plt Count 171, MPV 7.9, Neut % (Auto) 71.1, Lymph % (Auto) 17.9, Gibson % (Auto) 6.4, Eos % (Auto) 3.4, Baso % (Auto) 1.1, Neut # (Auto) 3.8, Lymph # (Auto) 1.0, Gibson # (Auto) 0.3, Eos # (Auto) 0.2, Baso # (Auto) 0.1 01/28/22 14:15: Sodium 140, Potassium 3.8, Chloride 100, Carbon Dioxide 30, Anion Gap 13.8, BUN 9, Creatinine 1.10, Estimated Creat Clear 80, Estimated GFR 65, Est GFR ( Amer) 79, Glucose 129 H, Calcium 9.1, Troponin I < 0.01 01/28/22 18:25: Troponin I < 0.01 01/28/22 21:44: Troponin I < 0.01 I & O for Last 24 hours: Intake & Output 01/26/22 01/27/22 01/28/22 01/29/22 23:59 23:59 23:59 23:59 Intake Total 240 / 240 Output Total 0 / 0 Balance 240 / 240 Weight 98.968 kg 98.6 kg Constitutional Constitutional: no acute distress, obese and chronically ill appearing *Routine HEENT Exam Head: Present normocephalic Eye: Present EOMI and PERRL ENT: Presen
[2022-01-29 08:00] VITALS: BP 120/63; PULSE 71; RESP 20; TEMP 36.6; O2SAT 95
[2022-01-29 08:08] LABS: Basophils # 0.1 K/mm3 (0-0.2); Eosinophils # 0.3 K/mm3 (0.0-0.4); Eosinophils % 5.6 % (0.1-12.0); Hematocrit 46.7 % (42.0-52.0); Hemoglobin 15.1 g/dL (14.1-18.0); Lymphocytes # 1.3 K/mm3 (0.7-4.5); Lymphocytes % 26.1 % (10-50); Mean Corpuscular HGB Conc 32.3 g/dL (31.8-35.4); Mean Corpuscular Volume 95.8 fl (80-94); Mean Platelet Volume 7.6 fl (7.4-10.4); Monocytes # 0.3 K/mm3 (0.1-1.0); Neutrophils % 61.2 % (37.0-80.0); Platelet Count 155 K/mm3 (142-424); Red Blood Count 4.87 M/mm3 (4.60-6.20); Red Cell Distribution Width 13.6 % (11.5-17.5); White Blood Count 4.9 K/mm3 (4.8-10.8)
[2022-01-29 08:17] LABS: Alanine Aminotransferase 24 U/L (12-78); Albumin Level 3.5 g/dl (3.5-5.0); Albumin/Globulin Ratio 1.2 (1.1-1.8); Alkaline Phosphatase 78 U/L (38-126); Anion Gap 14.7 mEq/L (5-15); Aspartate Amino Transferase 29 U/L (17-59); Bilirubin,Total 0.7 mg/dl (0.2-1.3); Blood Urea Nitrogen 10 mg/dl (9-20); Calcium 8.8 mg/dl (8.4-10.2); Carbon Dioxide 27 mmol/L (22.0-30.0); Chloride 103 mmol/L (98-107); Chol/HDL Ratio 5.2 (1-3.5); Cholesterol 151 mg/dl (140-200); Creatinine Clearance Estimated 81 mL/min (50-200); Estimated Glomerular Filt Rate 65 ml/min (>60); GFR (African American) 79 ML/MIN (>60); Glucose 117 mg/dl (74-100); HDL Cholesterol 29 mg/dl (40-60); Magnesium 2.2 mg/dl (1.6-2.3); Potassium 3.7 mmoL/L (3.5-5.1); Sodium 141 mmol/L (136-145); Total Protein,Serum 6.5 g/dl (6.3-8.2); Triglycerides 90 mg/dl (30-150); VLDL Cholesterol 18 mg/dL (0-40)
[2022-01-29 08:33] LABS: Direct LDL Cholesterol 87.78 mg/dL (100-129)
[2022-01-29 08:54] VITALS: BP 109/60; PULSE 66
--- NOTE | 2022-01-29 09:32 | EXP.DC.SUM ---
General Admission date:: 01/28/22 Discharge date: 01/29/22 HPI HPI HPI: Mr. Whitney is a 76-year-old male with significant cardiac history. History of CABG, CAD, hypertension, hyperlipidemia, BPH who presented to the ER this afternoon with onset of chest pain. States he has had lower sternal pain since earlier this morning accompanied by shortness of breath and nausea. It began after a syncopal episode when he was trying to walk across the room. States he passed out and thinks he might have fallen forward. His slapped him around and woke him up . He was back to baseline mentation by the time he came to the ER. He has had a history of a heart attack with double bypass surgery 4 to 5 years ago. Surgery performed at . Pain is similar to his previous [place], has not seen a patient relations coordinator in several years and has not had problems since his bypass surgery. Does not take any nitroglycerin. Took aspirin at home because of the pain. Pain on arrival 09/19. Denies any radiation down his arms. No confusion, headache, diarrhea or vomiting. Initial troponin negative. Medicine consulted for admission and observation overnight with serial enzymes After arriving to the floor, states that he is feeling better with no pain at this time. Denies any shortness of breath. EKG reviewed, chronic changes but no acute ST abnormalities. Exam Data for Last 24 hours Vital signs and Labs for Last 24 Hours: Temp Pulse Resp BP Pulse Ox 97.8 F 66 20 109/60 L 95 01/29/22 08:00 01/29/22 08:54 01/29/22 08:00 01/29/22 08:54 01/29/22 08:00 Laboratory Results - last 24 hr 01/28/22 14:00: SARS-CoV-2 (PCR) Not detected, Influenza A Untype (PCR) Not detected, Influenza Type B (PCR) Not detected 01/28/22 14:15: WBC 5.3, RBC 5.07, Hgb 15.9, Hct 48.5, MCV 95.6 H, MCH 31.4 H, MCHC 32.9, RDW 13.7, Plt Count 171, MPV 7.9, Neut % (Auto) 71.1, Lymph % (Auto) 17.9, Kaufman % (Auto) 6.4, Eos % (Auto) 3.4, Baso % (Auto) 1.1, Neut # (Auto) 3.8, Lymph # (Auto) 1.0, Kaufman # (Auto) 0.3, Eos # (Auto) 0.2, Baso # (Auto) 0.1 01/28/22 14:15: Sodium 140, Potassium 3.8, Chloride 100, Carbon Dioxide 30, Anion Gap 13.8, BUN 9, Creatinine 1.10, Estimated Creat Clear 80, Estimated GFR 65, Est GFR ( Amer) 79, Glucose 129 H, Calcium 9.1, Troponin I < 0.01 01/28/22 18:25: Troponin I < 0.01 01/28/22 21:44: Troponin I < 0.01 01/29/22 07:56: WBC 4.9, RBC 4.87, Hgb 15.1, Hct 46.7, MCV 95.8 H, MCH 31.0, MCHC 32.3, RDW 13.6, Plt Count 155, MPV 7.6, Neut % (Auto) 61.2, Lymph % (Auto) 26.1, Kaufman % (Auto) 6.0, Eos % (Auto) 5.6, Baso % (Auto) 1.0, Neut # (Auto) 3.0, Lymph # (Auto) 1.3, Kaufman # (Auto) 0.3, Eos # (Auto) 0.3, Baso # (Auto) 0.1 01/29/22 07:56: Sodium 141, Potassium 3.7, Chloride 103, Carbon Dioxide 27, Anion Gap 14.7, BUN 10, Creatinine 1.10, Estimated Creat Clear 81, Estimated GFR 65, Est GFR ( Amer) 79, Glucose 117 H, Calcium 8.8, Magnesium 2.2, Total Bilirubin 0.7, AST 29, ALT 24, Alkaline Phosphatase 78, Total Protein 6.5, Albumin 3.5, Globulin 3.0, Albumin/Globulin Ratio 1.2, Triglycerides 90, Cholesterol 151, LDL Cholesterol Direct 87.78 L, VLDL Cholesterol 18, HDL Cholesterol 29 L, Cholesterol/HDL Ratio 5.2 H I & O for Last 24 hours: Intake & Output 01/26/22 01/27/22 01/28/22 01/29/22 11:59 11:59 11:59 11:59 Intake Total 600 / 600 Output Total 0 / 0 Balance 600 / 600 Weight 217 lb 6 oz Results Data Completed and Pending Labs on day of discharge: Labs from last 24 hours 01/29/22 01/29/22 01/28/22 07:56 07:56 21:44 WBC 4.9 RBC 4.87 Hgb 15.1 Hct 46.7 MCV 95.8 H MCH 31.0 MCHC 32.3 RDW 13.6 Plt Count 155 MPV 7.6 Neut % (Auto) 61.2 Lymph % (Auto) 26.1 Kaufman % (Auto) 6.0 Eos % (Auto) 5.6 Baso % (Auto) 1.0 Neut # (Auto) 3.0 Lymph # (Auto) 1.3 Kaufman # (Auto) 0.3 Eos # (Auto) 0.3 Baso # (Auto) 0.1 Sodium 141 Potassium 3.7 Chloride 103 Carbon Dioxide 27 Ani
--- NOTE | 2022-01-29 11:21 | PC.NURSE ---
pt is being discharged from the unit via private car. took all belongings with him and voiced understanding of all dc education and follow up appts. IV and telemetry discontinued prior to dc. has denies any pain or SOA since admission
--- NOTE | 2022-01-31 14:20 | CARE MANAGER ---
Spoke with patient for post-discharge phone interview, patient states that he is doing well and has no issues.
== END 2022-01-29 11:22 | disposition home or self-care (01) ==
LOC: ER 15:11 → 2ND 16:44
PROVIDERS: Admitting Provider Internal Medicine Adolescent Medicine; Emergency Provider Emergency Medicine; PCP Family Medicine; Visit Provider Internal Medicine Adolescent Medicine
DX: R07.2 Precordial pain (principal); I25.110 Atherosclerotic heart disease of native coronary artery with unstable angina pectoris; I10 Essential (primary) hypertension; E78.5 Hyperlipidemia, unspecified; N40.1 Benign prostatic hyperplasia with lower urinary tract symptoms; N13.8 Other obstructive and reflux uropathy; R55 Syncope and collapse; Z79.899 Other long term (current) drug therapy; Z95.1 Presence of aortocoronary bypass graft
CPT/HCPCS: G0378; G0379; 36415; 71045; 80048; 80053; 80061; 83735; 84484; 85025; 93005; 93306; C9803; U0003; U0005

== ENCOUNTER → 2022-02-25 06:28 | Outpatient (CLI) | payer MEDICARE, SELFPAY ==
--- NOTE | 2022-02-25 | CA_ITS ---
APPROVED REPORT Exam: Pharmacologic Technologist: Shellie Coughlin, Ht: 5 ft 10 in Wt: 218 lbs BSA: 2.17 m2 HR: 68 bpm BP: 124/79 mmHg Medical History Medical History: HTN, Hyperlipidemia Medications: Amlodipine,,,,, Potassium Chloride,,,,, Aspirin,,,,, Atorvastatin,,,,, TAMSULOSIN,,,,, Nitroglycerin,,,,, Fexofenadine,,,,, Cardiac Risk Factors: HTN, Hyperlipidemia, FHX of CAD Stress Test Details Test: LEXISCAN HR Resting HR: 69 bpm Max Heart Rate (APMHR): 144.455522 bpm Max HR Achieved: 95 bpm Target HR (85% APMHR): 122.139234 bpm % of APMHR: 65.97 Recovery HR: 75 bpm BP Resting BP: 124/79 mmHg Max BP: 124/79 mmHg Recovery BP: 101.0/71.0 mmHg ECG Clinical Exercise duration: 04:01 min Highest Stage Achieved: Exercise capacity: 1.0 METs Stress ECG Conclusion During lexiscan pt experinced SOA. No arrhythmias noted. <1.5mm ST changes. Test Summary REST . . . . . . . Sitting REST . . . . . . . Sitting REST 08:53 . . 69 . 124/ 79 . . Stage 1 01:00 . . 87 . . . . Stage 2 01:00 . . 94 . 96/ 63 . . Stage 3 01:00 . . 87 . 98/ 68 . . Stage 4 01:00 . . 84 . 107/ 63 . . Stage 4 01:01 . . 84 . 107/ 63 . Stop exercise at 04:01 RECOVERY 01:00 . . 85 . . . . RECOVERY 02:00 . . 85 . 101/ 71 . . RECOVERY 03:00 . . 82 . 103/ 65 . . Electronically signed by : Vinay Zarco MD 02/25/2022 12:24:40
--- NOTE | 2022-02-25 06:37 | NM_ITS ---
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 With Lexiscan, patient denied any complaint of chest pain. Electrocardiogram Resting electrocardiogram shows sinus rhythm, with Lexiscan there is less than 1.[address] segment depression noted from the baseline EKG. The EKG portion of the Lexiscan is nondiagnostic. Cardiac Stress and Resting SPECT Images: Cardiac Stress and Resting SPECT images were obtained using technetium 99m Myoview 31.7 mCi stress and 10.28 mCi at rest. Gated SPECT analysis of segmental wall motion and calculation of the ejection fraction also done. Prone images were also obtained. Cardiac stress and resting SPECT images show uniform myocardial activity without segmental perfusion abnormality, computer derived ejection fraction is 59% with no regional wall motion abnormality, right ventricle is normal size and contractility. Conclusion: 1. The EKG portion of the Lexiscan is nondiagnostic. 2. No scintigraphic evidence of reversible ischemia seen, computer derived ejection fraction is 59% with no regional wall motion abnormality, right ventricle is normal size and contractility. 3. Normal Lexiscan Myoview study. Electronically signed by : Vinay Zarco MD 02/25/2022 13:05:01
== END ==
PROVIDERS: PCP Family Medicine; Visit Provider Nurse Practitioner
DX: E78.5 Hyperlipidemia, unspecified (principal); I10 Essential (primary) hypertension; Z95.1 Presence of aortocoronary bypass graft; I20.8 Other forms of angina pectoris
CPT/HCPCS: 78452; 93017; A9502; J2785

== ENCOUNTER 2022-06-03 19:55 | Emergency (ER) | payer MEDICARE, SELFPAY ==
[2022-06-03 19:56] VITALS: BP 146/92; PULSE 72; RESP 17; TEMP 36.6; O2SAT 100; BMI 29.2
--- NOTE | 2022-06-03 20:16 | HMH.EDGENADL ---
Discharge Plan Disposition Patient Disposition: Home, Self-Care Condition: Good Prescriptions Prescriptions: New ciprofloxacin HCl [Cipro] 500 mg tablet 500 mg PO Q12H Qty: 20 0RF tamsulosin [Flomax] 0.4 mg capsule 0.4 mg PO DAILY Qty: 30 0RF No Action potassium chloride 20 mEq tablet extended release 20 meq PO DAILY fexofenadine 180 mg tablet 180 mg PO DAILY atorvastatin 40 mg tablet 40 mg PO DAILY Qty: 90 3RF tamsulosin 0.4 MG capsule 0.4 mg PO HS Qty: 15 0RF amlodipine 10 MG tablet 10 mg PO DAILY aspirin 81 MG tablet,chewable 81 mg PO DAILY nitroglycerin 0.4 MG tablet, sublingual 0.4 mg SL Q5MINP PRN (Reason: Chest Pain) Qty: 30 0RF Referrals Follow up/Referrals: Db Gipson MD [Primary Care Provider] - See instructions Clinical Impressions Clinical Impression: Acute urinary retention, Acute UTI Instructions Patient Instructions: DI for Urinary Tract Infection (UTI), DI for Urinary Tract Infection in Children Print Language Print Language: Ukrainian Discharge ED Provider: Lowell Smith General Adult HPI General Chief complaint: Urogenital-Male Stated complaint: lower Abd Pain Time Seen by Provider: 06/03/22 22:09 Mode of Arrival: Ambulatory Source of Information: Patient Limitations: No Limitations Description of Symptoms (Recalled from ER Triage Doc. by RN): pt to ED with urinary retention x 2 days. pt stated he ran out of flomax and cant get a refill until he sees urology in july 28 History of Present Illness HPI narrative: Patient presents to the emergency department with urinary retention. He has a history of this and recently was found to have no refills on his prescription of Flomax. He called his urologist to make an appointment however the patient started having urinary retention yesterday and has not peed since yesterday. He comes in with lower abdominal pressure. Denies any fever, chills, cough, congestion, nausea, vomiting. Related Data Home Medications Medication Instructions Recorded Confirmed amlodipine 10 mg tablet 10 mg PO DAILY BLOOD PRESSURE 06/10/19 03/10/22 aspirin 81 mg chewable tablet 81 mg PO DAILY HEART HEALTH 06/10/19 03/10/22 fexofenadine 180 mg tablet 180 mg PO DAILY 10/12/21 03/10/22 potassium chloride 20 mEq 20 meq PO DAILY 10/12/21 03/10/22 tablet,extended release Previous Rx's Medication Instructions Recorded nitroglycerin 0.4 mg sublingual 0.4 mg sublingual Q5MINP PRN Chest 06/10/19 tablet Pain ##30 tamsulosin 0.4 mg capsule 0.4 mg PO HS #15 caps 10/05/21 atorvastatin 40 mg tablet 40 mg PO DAILY #90 tabs 03/10/22 ciprofloxacin HCl 500 mg tablet 500 mg PO Q12H #20 tabs 06/03/22 (Cipro) tamsulosin 0.4 mg capsule (Flomax) 0.4 mg PO DAILY #30 caps 06/03/22 Allergies Allergy/AdvReac Type Severity Reaction Status Date / Time No Known Allergies Allergy Verified 03/10/22 13:52 [facility] Disclaimer: The information contained in this section may have been updated after the patient was seen, as this information can be updated by other users. Medical History Coronary artery disease History of heart attack Typical angina Surgical History History of ankle surgery History of coronary artery bypass graft Hx of shoulder surgery Status post double vessel coronary artery bypass Family History Other Bone cancer Family history of COPD (chronic obstructive pulmonary disease) Family history of acute heart failure Family history of diabetes mellitus type II Stomach cancer Social History Smoking Status: Never smoker alcohol intake: never substance use type: denies use current occupational status: retired Travel in the last 8 weeks: None household members: none hous
--- NOTE | 2022-06-03 20:19 | PC.NURSE ---
uro jet administered for comfort at this time
--- NOTE | 2022-06-03 20:25 | PC.NURSE ---
ham catheter inserted at this time.
[2022-06-03 20:34] LABS: Microscopic, Urine URINE MICROSCOPIC (MICROSCOPIC)
[2022-06-03 20:55] LABS: Appearance,Urine CLOUDY (Clear); Blood, Urine 3+ (Negative); Color,Urine BROWN (Yellow); Glucose,Urine (UA) Negative (Negative); Ketones,Urine TRACE (Negative); Leukocyte Esterase,Urine 3+ (Negative); Nitrate,Urine POSITIVE (Negative); PH,Urine 6.5 (5.0-8.5); Protein,Urine 2+ (Negative)
[2022-06-03 21:09] LABS: Bilirubin,Urine 2+ (Negative)
[2022-06-03 21:59] LABS: RBC,Urine TNTC #/hpf (0-3)
[2022-06-03 22:00] LABS: Bacteria,Urine 1+ /lpf; Squamous Epithelial Cell,Urine Occasional #/hpf (0-5)
[2022-06-03 22:29] VITALS: BP 135/85; PULSE 70; RESP 18; TEMP 36.6; O2SAT 98
--- NOTE | 2022-06-03 22:45 | PC.NURSE ---
pt ham cath. switched over to a leg bag at this time. pt instructed on how to remove the ham cath at home if needed and was able to verbalize understanding and teach back.
== END 2022-06-03 22:48 | disposition home or self-care (01) ==
PROVIDERS: Emergency Provider Emergency Medicine; PCP Family Medicine
DX: N39.0 Urinary tract infection, site not specified (principal); R33.9 Retention of urine, unspecified; R10.30 Lower abdominal pain, unspecified
CPT/HCPCS: 51702; 81001; 87086; 87088; 96374; 99283; 99284

== ENCOUNTER 2022-06-14 20:55 | Emergency (ER) | payer MEDICARE, SELFPAY ==
[2022-06-14 20:57] VITALS: BMI 28.5
--- NOTE | 2022-06-14 21:14 | PC.NURSE ---
830 mL per bladder scan. Place ham per attending
--- NOTE | 2022-06-14 21:23 | PC.NURSE ---
Rounded on patient, patient voiced no concerns at this time.
[2022-06-14 21:26] LABS: Microscopic, Urine URINE MICROSCOPIC (MICROSCOPIC)
[2022-06-14 21:28] LABS: Appearance,Urine CLEAR (Clear); Bilirubin,Urine Negative (Negative); Blood, Urine Negative (Negative); Color,Urine YELLOW (Yellow); Glucose,Urine (UA) Negative (Negative); Ketones,Urine Negative (Negative); Leukocyte Esterase,Urine Negative (Negative); Nitrate,Urine Negative (Negative); Protein,Urine Negative (Negative); Specific Gravity, Urine 1.015 (1.005-1.030); Urobilinogen,Urine 0.2 EU/dl (0.2)
[2022-06-14 21:49] VITALS: BP 126/88; PULSE 81; RESP 17; TEMP 36.8; O2SAT 96
[2022-06-14 21:59] LABS: Squamous Epithelial Cell,Urine Occasional #/hpf (0-5)
== END 2022-06-14 21:50 | disposition home or self-care (01) ==
PROVIDERS: Emergency Provider Emergency Medicine; PCP Family Medicine
DX: Z53.21 Procedure and treatment not carried out due to patient leaving prior to being seen by health care provider (principal)
CPT/HCPCS: 51702; 81001; 99211

== ENCOUNTER 2022-06-29 18:21 | Emergency (ER) | payer MEDICARE, SELFPAY ==
[2022-06-29 18:22] VITALS: BP 130/74; PULSE 82; RESP 17; TEMP 36.6; O2SAT 98; BMI 27.6
--- NOTE | 2022-06-29 19:30 | HMH.EDGENADL ---
Discharge Plan Disposition Patient Disposition: Home, Self-Care Condition: Good Chief Complaint: Urogenital-Male Prescriptions Prescriptions: No Action potassium chloride 20 mEq tablet extended release 20 meq PO DAILY fexofenadine 180 mg tablet 180 mg PO DAILY atorvastatin 40 mg tablet 40 mg PO DAILY Qty: 90 3RF tamsulosin 0.4 MG capsule 0.4 mg PO HS Qty: 15 0RF amlodipine 10 MG tablet 10 mg PO DAILY aspirin 81 MG tablet,chewable 81 mg PO DAILY nitroglycerin 0.4 MG tablet, sublingual 0.4 mg SL Q5MINP PRN (Reason: Chest Pain) Qty: 30 0RF ciprofloxacin HCl [Cipro] 500 mg tablet 500 mg PO Q12H Qty: 20 0RF tamsulosin [Flomax] 0.4 mg capsule 0.4 mg PO DAILY Qty: 30 0RF Referrals Follow up/Referrals: Db Gipson MD [Primary Care Provider] - See instructions Clinical Impressions Clinical Impression: Acute urinary retention Discharge ED Provider: Salas Kennedy General Adult HPI General Chief complaint: Urogenital-Male Stated complaint: Cant pee Time Seen by Provider: 06/29/22 18:30 Mode of Arrival: Ambulatory Source of Information: Patient Limitations: No Limitations Description of Symptoms (Recalled from ER Triage Doc. by RN): pt to ED with chronic urinary retention. pt reports he recently had a catheter placed for two weeks and had it removed yesterday in Dr. Shultz office. pt reports he has dribbled some since yesterday but hasnt had a regukar void since. History of Present Illness HPI narrative: This is a 77-year-old male with history of BPH currently following with urology who is presenting with urinary retention. Patient states he last urinated around 2 AM on 06/29. Has not been able to urinate since. Has significant abdominal pain and distention. Had bladder catheter removed 2 days prior to arrival on 06/27 with urology and had Flomax increased, but has been urinating very little since that time. Denies fevers, chills, nausea, vomiting, dysuria, hematuria, or any other concerns. Related Data Home Medications Medication Instructions Recorded Confirmed amlodipine 10 mg tablet 10 mg PO DAILY BLOOD PRESSURE 06/10/19 03/10/22 aspirin 81 mg chewable tablet 81 mg PO DAILY HEART HEALTH 06/10/19 03/10/22 fexofenadine 180 mg tablet 180 mg PO DAILY 10/12/21 03/10/22 potassium chloride 20 mEq 20 meq PO DAILY 10/12/21 03/10/22 tablet,extended release Previous Rx's Medication Instructions Recorded nitroglycerin 0.4 mg sublingual 0.4 mg sublingual Q5MINP PRN Chest 06/10/19 tablet Pain ##30 tamsulosin 0.4 mg capsule 0.4 mg PO HS #15 caps 10/05/21 atorvastatin 40 mg tablet 40 mg PO DAILY #90 tabs 03/10/22 ciprofloxacin HCl 500 mg tablet 500 mg PO Q12H #20 tabs 06/03/22 (Cipro) tamsulosin 0.4 mg capsule (Flomax) 0.4 mg PO DAILY #30 caps 06/03/22 Allergies Allergy/AdvReac Type Severity Reaction Status Date / Time No Known Allergies Allergy Verified 03/10/22 13:52 [facility] Disclaimer: The information contained in this section may have been updated after the patient was seen, as this information can be updated by other users. Medical History Coronary artery disease History of heart attack Typical angina Surgical History History of ankle surgery History of coronary artery bypass graft Hx of shoulder surgery Status post double vessel coronary artery bypass Family History Other Bone cancer Family history of COPD (chronic obstructive pulmonary disease) Family history of acute heart failure Family history of diabetes mellitus type II Stomach cancer Social History Smoking Status: Never smoker alcohol intake: never substance use type: denies use current occupational status: retired Travel in the last 8 weeks: None
[2022-06-29 19:52] LABS: Microscopic, Urine URINE MICROSCOPIC (MICROSCOPIC)
[2022-06-29 19:53] LABS: Appearance,Urine CLOUDY (Clear); Bilirubin,Urine Negative (Negative); Blood, Urine 3+ (Negative); Color,Urine ORANGE (Yellow); Glucose,Urine (UA) Negative (Negative); Ketones,Urine Negative (Negative); Leukocyte Esterase,Urine TRACE (Negative); Nitrate,Urine Negative (Negative); Protein,Urine TRACE (Negative); Specific Gravity, Urine 1.015 (1.005-1.030); Urobilinogen,Urine 0.2 EU/dl (0.2)
[2022-06-29 19:56] VITALS: BP 159/79; PULSE 81; RESP 17; TEMP 36.9; O2SAT 97
--- NOTE | 2022-06-29 20:06 | PC.NURSE ---
changed patient from bsd to leg bag. 850 urine output noted.
[2022-06-29 20:12] LABS: Bacteria,Urine Trace /lpf; RBC,Urine TNTC #/hpf (0-3); Squamous Epithelial Cell,Urine Occasional #/hpf (0-5); WBC,Urine Occasional #/hpf (0-3); Yeast,Urine 4+ /lpf
== END 2022-06-29 20:07 | disposition home or self-care (01) ==
PROVIDERS: Emergency Provider Emergency Medicine; PCP Family Medicine
DX: N40.1 Benign prostatic hyperplasia with lower urinary tract symptoms (principal); R33.9 Retention of urine, unspecified
CPT/HCPCS: 51702; 81001; 99283

== ENCOUNTER → 2022-08-12 15:14 | Outpatient (CLI) | payer MEDICARE, SELFPAY ==
--- NOTE | 2022-08-12 15:21 | US_ITS ---
FINAL REPORT TECHNIQUE: Ultrasound images of the kidneys and bladder were obtained. CLINICAL HISTORY: ABDOMINAL PAIN FINDINGS: The right kidney measures 11.1 cm in length. It is normal in echogenicity. There is no hydronephrosis. The left kidney measures 12.2 cm in length. It is normal in echogenicity. There is no hydronephrosis. There is a well-circumscribed, anechoic left renal lesion measuring 4.4 cm consistent with benign cyst. The urinary bladder is unremarkable. IMPRESSION: No hydronephrosis. Benign left renal cyst. Reviewed, Interpreted and Dictated by Arnav Villafana MD Transcribed by Madiha Reynoso Authenticated and [facility]
== END ==
PROVIDERS: PCP Family Medicine; Visit Provider Urology
DX: R10.32 Left lower quadrant pain (principal)
CPT/HCPCS: 76770

== ENCOUNTER 2022-08-14 21:01 | Inpatient (IN) | payer MEDICARE, SELFPAY ==
[2022-08-14 21:31] VITALS: BP 108/65; BP 110/70; PULSE 83; PULSE 86; RESP 16; TEMP 39.2; O2SAT 95; O2SAT 98; BMI 25.7
--- NOTE | 2022-08-14 21:37 | XR_ITS ---
PROCEDURE INFORMATION: Exam: XR Chest Exam date and time: 08/14/22 09:38 PM Age: 77 years old Clinical indication: Fever TECHNIQUE: Imaging protocol: Radiologic exam of the chest. Views: 2 views. COMPARISON: CR XR CHEST PORTABLE 01/28/22 02:36 PM FINDINGS: Lungs: Hyperexpanded lungs without infiltrate. Pleural spaces: Unremarkable. No pleural effusion. No pneumothorax. Heart/Mediastinum: Unremarkable. No cardiomegaly. Bones/joints: Median sternotomy. IMPRESSION: Hyperexpanded lungs without infiltrate.
[2022-08-14 22:00] VITALS: BP 109/68; PULSE 80; O2SAT 94
[2022-08-14 22:10] LABS: Microscopic, Urine URINE MICROSCOPIC (MICROSCOPIC)
--- NOTE | 2022-08-14 22:10 | HMH.EDUROGM ---
Discharge Plan Disposition Patient Disposition: Admitted Chief Complaint: Urogenital-Male Prescriptions Prescriptions: No Action finasteride 5 mg tablet 5 mg PO DAILY Label Comments: TAKE 1 TABLET BY MOUTH DAILY potassium chloride 20 mEq tablet extended release 20 meq PO DAILY fexofenadine 180 mg tablet 180 mg PO DAILY atorvastatin 40 mg tablet 40 mg PO DAILY Qty: 90 3RF tamsulosin 0.4 MG capsule 0.4 mg PO HS Qty: 15 0RF amlodipine 10 MG tablet 10 mg PO DAILY aspirin 81 MG tablet,chewable 81 mg PO DAILY nitroglycerin 0.4 MG tablet, sublingual 0.4 mg SL Q5MINP PRN (Reason: Chest Pain) Qty: 30 0RF ciprofloxacin HCl [Cipro] 500 mg tablet 500 mg PO Q12H Qty: 20 0RF tamsulosin [Flomax] 0.4 mg capsule 0.4 mg PO DAILY Qty: 30 0RF Referrals Follow up/Referrals: Db Gipson MD [Primary Care Provider] - See instructions Jean Paul Vázquez MD [Referring] - See instructions Clinical Impressions Clinical Impression: Acute UTI, Acute pyelonephritis, Abscess of prostate, SIRS (systemic inflammatory response syndrome) Discharge ED Provider: Damaso (ED),Adrian Joaquin Male Urogenital HPI General Chief complaint: Urogenital-Male Stated complaint: losing weight, weak, slurred speech Time Seen by Provider: 08/14/22 22:05 Mode of Arrival: Wheelchair Source of Information: Patient, Relative and Medical Record Limitations: No Limitations Description of Symptoms (Recalled from ER Triage Doc. by RN): Patient arrives via wheelchair. Hx of prostate surgery 2 weeks ago. Generalized weakness since then. Son states that for the last few days patient has become increasingly weak, increased urinary frequency, nausea for the last two days with vomiting, confusion. Son said that he believed that the patients speech has been different since the surgery. History of Present Illness HPI Narrative: had recent prostate surg at [facility] with dr vázquez - [place] over night over the last few days has weakness and dec po intake - Onset (ago): day(s) Duration: intermittent Severity: moderate Reports nausea/vomiting Related Data Home Medications Medication Instructions Recorded Confirmed amlodipine 10 mg tablet 10 mg PO DAILY BLOOD PRESSURE 06/10/19 07/11/22 aspirin 81 mg chewable tablet 81 mg PO DAILY HEART HEALTH 06/10/19 07/11/22 fexofenadine 180 mg tablet 180 mg PO DAILY 10/12/21 07/11/22 potassium chloride 20 mEq 20 meq PO DAILY 10/12/21 07/11/22 tablet,extended release finasteride 5 mg tablet 5 mg PO DAILY 07/11/22 07/11/22 Previous Rx's Medication Instructions Recorded nitroglycerin 0.4 mg sublingual 0.4 mg sublingual Q5MINP PRN Chest 06/10/19 tablet Pain ##30 tamsulosin 0.4 mg capsule 0.4 mg PO HS #15 caps 10/05/21 atorvastatin 40 mg tablet 40 mg PO DAILY #90 tabs 03/10/22 ciprofloxacin HCl 500 mg tablet 500 mg PO Q12H #20 tabs 06/03/22 (Cipro) tamsulosin 0.4 mg capsule (Flomax) 0.4 mg PO DAILY #30 caps 06/03/22 Allergies Allergy/AdvReac Type Severity Reaction Status Date / Time No Known Allergies Allergy Verified 07/11/22 08:39 [facility] Disclaimer: The information contained in this section may have been updated after the patient was seen, as this information can be updated by other users. Medical History Coronary artery disease History of heart attack Typical angina Surgical History History of ankle surgery History of coronary artery bypass graft Hx of shoulder surgery Status post double vessel coronary artery bypass Family History Other Bone cancer Family history of COPD (chronic obstructive pulmonary disease) Family history of acute heart failure Family history of diabetes mellitus type II Stomach cancer Social History Smoking Status: Donald
[2022-08-14 22:13] LABS: Alanine Aminotransferase 37 U/L (12-78); Albumin Level 2.9 g/dl (3.5-5.0); Albumin/Globulin Ratio 0.8 (1.1-1.8); Alkaline Phosphatase 101 U/L (38-126); Anion Gap 14.5 mEq/L (5-15); Aspartate Amino Transferase 45 U/L (17-59); Basophils % 0.1 % (0.1-2.0); Bilirubin,Total 0.9 mg/dl (0.2-1.3); Blood Urea Nitrogen 15 mg/dl (9-20); Carbon Dioxide 26 mmol/L (22.0-30.0); Chloride 93 mmol/L (98-107); Creatinine Clearance Estimated 62 mL/min (50-200); Eosinophils % 0.1 % (0.1-12.0); Estimated Glomerular Filt Rate 59 ml/min (>60); GFR (African American) 71 ML/MIN (>60); Globulin 3.7 g/dL (1.3-3.2); Glucose 122 mg/dl (74-100); Hematocrit 42.3 % (42.0-52.0); Hemoglobin 13.7 g/dL (14.1-18.0); Lymphocytes % 6.7 % (10-50); Mean Corpuscular HGB Conc 32.4 g/dL (31.8-35.4); Mean Corpuscular Hemoglobin 29.5 pg (27.0-31.2); Mean Corpuscular Volume 91.2 fl (80-94); Mean Platelet Volume 8.1 fl (7.4-10.4); Monocytes # 1.3 K/mm3 (0.1-1.0); Monocytes % 8.7 % (1.7-9.3); Neutrophils # 12.5 K/mm3 (1.8-7.8); Neutrophils % 84.4 % (37.0-80.0); Platelet Count 233 K/mm3 (142-424); Potassium 3.5 mmoL/L (3.5-5.1); Red Blood Count 4.64 M/mm3 (4.60-6.20); Red Cell Distribution Width 13.3 % (11.5-17.5); Sodium 130 mmol/L (136-145); Total Protein,Serum 6.6 g/dl (6.3-8.2); White Blood Count 14.8 K/mm3 (4.8-10.8)
--- NOTE | 2022-08-14 22:13 | CT_ITS ---
PROCEDURE INFORMATION: Exam: CT Abdomen And Pelvis With Contrast Exam date and time: 08/14/22 10:27 PM Age: 77 years old Clinical indication: Fever and nausea TECHNIQUE: Imaging protocol: Computed tomography of the abdomen and pelvis with contrast. Radiation optimization: All CT scans at this facility use at least one of these dose optimization techniques: automated exposure control; mA and/or kV adjustment per patient size (includes targeted exams where dose is matched to clinical indication); or iterative reconstruction. Contrast material: ISOVUE; Contrast volume: 75 ml; Contrast route: IV; REPORTING DATA: Count of CT and Cardiac NM exams in prior 12 months: This patient has received [address] and 0 known cardiac nuclear medicine studies in the 12 months prior to the current study. COMPARISON: CT ABDOMEN PELVIS WO CON 10/05/21 11:21 AM FINDINGS: Tubes, catheters and devices: None noted. Lungs: Lung bases appear clear. Heart: No significant coronary calcifications. No cardiomegaly. No significant pericardial effusion. Liver: Normal. No mass. Gallbladder and bile ducts: Cholecystectomy. No ductal dilation. Pancreas: Normal. No ductal dilation. Spleen: Moderate splenomegaly. Adrenal glands: Normal. No mass. Kidneys and ureters: Right pyelonephritis. No hydronephrosis. Stomach and bowel: Unremarkable. No obstruction. No mucosal thickening. Appendix: No evidence of appendicitis. Intraperitoneal space: Unremarkable. No free air. No significant fluid collection. Retroperitoneal space: No significant retroperitoneal inflammatory changes are noted. Vasculature: Unremarkable. No abdominal aortic aneurysm. Lymph nodes: Unremarkable. No enlarged lymph nodes. Urinary bladder: Thickened bladder wall. Suspect chronic outlet obstruction. Reproductive: Enlarged prostate with suspected 3 cm abscess in the left lobe. Bones/joints: Unremarkable. No acute fracture. Soft tissues: Unremarkable. IMPRESSION: 1. Right pyelonephritis. 2. Thickened bladder wall. Suspect chronic outlet obstruction. 3. Enlarged prostate with suspected 3 cm abscess in the left lobe. 4. Cholecystectomy. 5. Moderate splenomegaly.
[2022-08-14 22:14] LABS: Lactic Acid 1.3 mmol/L (0.7-2.1)
[2022-08-14 22:14] LABS: Appearance,Urine CLOUDY (Clear); Bilirubin,Urine Negative (Negative); Blood, Urine 2+ (Negative); Color,Urine YELLOW (Yellow); Glucose,Urine (UA) Negative (Negative); Ketones,Urine Negative (Negative); Leukocyte Esterase,Urine 2+ (Negative); Nitrate,Urine POSITIVE (Negative); Protein,Urine 2+ (Negative)
[2022-08-14 22:18] LABS: Bacteria,Urine 2+ /lpf; WBC,Urine TNTC #/hpf (0-3)
[2022-08-14 22:19] LABS: C-Reactive Protein 115.1 mg/L (0-4)
[2022-08-14 22:33] LABS: Procalcitonin 0.345 ng/mL (0.0-2.0)
[2022-08-14 22:35] LABS: Erythrocyte Sedimentation Rate 51 mm/hr (0-20)
[2022-08-14 22:42] LABS: Coronavirus 19, PCR Not Detected (NotDetected); Influenza A, PCR Not Detected (NotDetected); Influenza B, PCR Not Detected (NotDetected)
[2022-08-14 23:00] VITALS: BP 105/67; PULSE 68; O2SAT 95
[2022-08-14 23:30] VITALS: BP 109/65; PULSE 70; TEMP 36.8; O2SAT 96
--- NOTE | 2022-08-14 23:58 | PC.NURSE ---
call placed to dr price for transfer via [facility]. Spoke with Dr Price who would like patient to be transferred back to [facility]. [place] was notified. No beds available. Waiting on transfer center to find disposition location.
[2022-08-15] VITALS (7 sets, daily range): BP systolic 110–139; BP diastolic 69–81; PULSE 60–74; RESP 16–19; TEMP 36.3–37.1; O2SAT 95–99; BMI 26.4; BMI 26.6
--- NOTE | 2022-08-15 00:19 | PC.NURSE ---
speaking with [facility] regarding potential patient transfer.
--- NOTE | 2022-08-15 00:27 | PC.NURSE ---
md [facility] with [facility].
--- NOTE | 2022-08-15 00:27 | PC.NURSE ---
spoke with hospitalist for admission
--- NOTE | 2022-08-15 00:50 | EXP.HP ---
History of Present Illness *Admission Date: 08/15/22 *Reason for visit:: Fevers, weakness *History of present illness: Mr. Whitney is a 77-year-old male with a past medical history of CAD, HTN, BPH, Hyperlipidemia. [facility] to a 2-3 day history of progressive weakness, increase frequency of urination, back pain, nausea and vomiting. He reports undergoing a TURP [address] Vázquez in [facility]. In the ER, the patient was noted to be febrile on admission with a Temperature of 102.6, WBC on CBC was elevated at 14.8, CT of the abdomen and pelvis was concerning for right pyelonephiritis and was also noted to show an enlarged prostate and suspected 3 cm abscess of the left lobe. ER Physician Dr. Petit called and spoke with Dr. Vázquez from [facility] who was happy to see the patient in consult, however there were no beds available at the hospitals where he practiced. was consulted and there were also no beds available. The patient will be admitted, started on antibiotics overnight. The patient was admitted with initial impression: Sepsis and Prostate abscess. [facility] Disclaimer: The information contained in this section may have been updated after the patient was seen, as this information can be updated by other users. Medical History Coronary artery disease History of heart attack Typical angina Surgical History History of ankle surgery History of coronary artery bypass graft Hx of shoulder surgery Status post double vessel coronary artery bypass Family History Other Bone cancer Family history of COPD (chronic obstructive pulmonary disease) Family history of acute heart failure Family history of diabetes mellitus type II Stomach cancer Social History (Updated 08/15/22 @ 02:10 by Stacia Perea RN) Smoking Status: Never smoker alcohol intake: never substance use type: denies use current occupational status: retired Travel in the last 8 weeks: None household members: none housing: house Review of Systems Review of Systems Review of systems:: pertinent systems reviewed and negative unless documented below Constitutional Constitutional: Reports body ache(s), Reports fatigue and Reports lethargy Eyes Eyes: Reports system reviewed and no additional complaints, except as documented ENT Ears, Nose, Mouth, and Throat: Reports system reviewed and no additional complaints, except as documented *Cardiovascular Cardiovascular: Reports system reviewed and no additional complaints, except as documented *Respiratory Respiratory: Reports system reviewed and no additional complaints, except as documented *Gastrointestinal Gastrointestinal: Reports nausea and Reports vomiting *Genitourinary Genitourinary: Reports urinary frequency *Musculoskeletal Musculoskeletal: Reports back pain Integumentary/Breasts Skin/Breast: Reports system reviewed and no additional complaints, except as documented *Neurologic Neurologic: Reports system reviewed and no additional complaints, except as documented Psychiatric Psychiatric: Reports system reviewed and no additional complaints, except as documented Endocrine Endocrine: Reports fatigue Hematologic/Lymphatic Hematologic/Lymphatic: Reports system reviewed and no additional complaints, except as documented Allergic/Immunologic Allergic/Immunologic: Reports system reviewed and no additional complaints, except as documented Meds Home Medications and Allergies Home Medications Medication Instructions Recorded Confirmed Type amlodipine 10 mg tablet 5 mg PO DAILY High blood pressure 06/10/19 08/15/22 History aspirin 81 mg chewable tablet 81 mg PO DAILY Heart health 06/10/19 08/15/22 History fexofenadine 180 mg tablet 180 mg PO DAILY Allergies 10/12/21 08/15/22 History
--- NOTE | 2022-08-15 00:57 | PC.NURSE ---
called pharmacy spoke with karlie, first dose vanc = 1500mg x 1. He will place the order.
--- NOTE | 2022-08-15 01:11 | EXP.SEPSISRE ---
[facility] Tissue Perfusion Eval Sepsis Re-Evaluation Performed: Yes Date Performed: 08/15/22 Time Performed: 01:11
[2022-08-15 07:38] LABS: Chloride 102 mmol/L (98-107); Sodium 136 mmol/L (136-145)
[2022-08-15 07:39] LABS: Potassium 3.4 mmoL/L (3.5-5.1)
[2022-08-15 07:41] LABS: Alanine Aminotransferase 32 U/L (12-78); Albumin Level 2.6 g/dl (3.5-5.0); Albumin/Globulin Ratio 0.8 (1.1-1.8); Alkaline Phosphatase 75 U/L (38-126); Anion Gap 9.4 mEq/L (5-15); Aspartate Amino Transferase 47 U/L (17-59); Bilirubin,Total 0.6 mg/dl (0.2-1.3); Blood Urea Nitrogen 15 mg/dl (9-20); Carbon Dioxide 28 mmol/L (22.0-30.0); Creatinine Clearance Estimated 70 mL/min (50-200); Estimated Glomerular Filt Rate 65 ml/min (>60); GFR (African American) 79 ML/MIN (>60); Globulin 3.3 g/dL (1.3-3.2); Total Protein,Serum 5.9 g/dl (6.3-8.2)
[2022-08-15 07:42] LABS: Glucose 96 mg/dl (74-100)
--- NOTE | 2022-08-15 08:08 | P.CONPHA_ITS ---
Pharmacy Consult Date: 08/15/22 Time: 08:08 Referring provider: ELIZABETH Reason for Consult:: PHARMACY CONSULTED TO DOSE VANCOMYCIN FOR ABSCESS- PROSTATE Allergies Allergy/AdvReac Type Severity Reaction Status Date / Time No Known Allergies Allergy Verified 07/11/22 08:39 Home Medications Medication Instructions Recorded Confirmed Type amlodipine 10 mg tablet 5 mg PO DAILY BLOOD PRESSURE 06/10/19 08/15/22 History aspirin 81 mg chewable tablet 81 mg PO DAILY HEART HEALTH 06/10/19 08/15/22 History fexofenadine 180 mg tablet 180 mg PO DAILY allergies 10/12/21 08/15/22 History potassium chloride 20 mEq 20 meq PO DAILY . 10/12/21 08/15/22 History tablet,extended release atorvastatin 40 mg tablet 40 mg PO DAILY Cholesterol 08/15/22 08/15/22 History New Prescriptions to Start Prescriptions: Height: 1.8 m Weight: 86.319 kg Laboratory Results:: Laboratory Results - last 24 hr 08/14/22 21:19: WBC 14.8 H, RBC 4.64, Hgb 13.7 L, Hct 42.3, MCV 91.2, MCH 29.5, MCHC 32.4, RDW 13.3, Plt Count 233, MPV 8.1, Neut % (Auto) 84.4 H, Lymph % (Auto) 6.7 L, [place] % (Auto) 8.7, Eos % (Auto) 0.1, Baso % (Auto) 0.1, Neut # (Auto) 12.5 H, Lymph # (Auto) 1.0, [place] # (Auto) 1.3 H, Eos # (Auto) 0.0, Baso # (Auto) 0.0 08/14/22 21:19: Sodium 130 L, Potassium 3.5, Chloride 93 L, Carbon Dioxide 26, Anion Gap 14.5, BUN 15, Creatinine 1.20, Estimated Creat Clear 62, Estimated GFR 59, Est GFR ( Amer) 71, Glucose 122 H, Calcium 8.0 L, Total Bilirubin 0.9, AST 45, ALT 37, Alkaline Phosphatase 101, C-Reactive Protein 115.1 H, Total Protein 6.6, Albumin 2.9 L, Globulin 3.7 H, Albumin/Globulin Ratio 0.8 L 08/14/22 21:19: ESR 51 H 08/14/22 21:19: Lactate 1.3 08/14/22 21:19: Procalcitonin 0.345 08/14/22 21:19: SARS-CoV-2 (PCR) Not detected, Influenza A Untype (PCR) Not dete cted, Influenza Type B (PCR) Not detected 08/14/22 21:28: Urine Color Yellow, Urine Appearance Cloudy, Urine pH 6.0, Ur Specific [place] 1.010, Urine Protein 2+, Urine Glucose (UA) Negative, Urine Ketones Negative, Urine Blood 2+, Urine Nitrate Positive, Urine Bilirubin Negative, Urine Urobilinogen 1.0, Ur Leukocyte Esterase 2+ A, Urine RBC 3-5, Urine WBC Tntc, Ur Squamous Epith Cells None, Urine Bacteria 2+ 08/15/22 07:15: Sodium 136, Potassium 3.4 L, Chloride 102, Carbon Dioxide 28, Anion Gap 9.4, BUN 15, Creatinine 1.10, Estimated Creat Clear 70, Estimated GFR 65, Est GFR ( Amer) 79, Glucose 96 D, Calcium 8.0 L, Total Bilirubin 0.6, AST 47, ALT 32, Alkaline Phosphatase 75, Total Protein 5.9 L, Albumin 2.6 L D, Globulin 3.3 H, Albumin/Globulin Ratio 0.8 L Medical History: Medical History (Updated 08/15/22 @ 00:58 by Burt Tavera DNP) Coronary artery disease History of heart attack Typical angina Assessment and Plan Assessment and plan all Dx Assessment and Plan for all problems:: VANCOMYCIN 1500MG STARTED 0200 ON 08/15/22. PT ALSO STARTED ON LEVAQUIN 500MG IV DAILY AND FLAGYL 500MG IV EVERY 6 HOURS. WILL CONTINUE VANCOMYCIN 1500MG IV EVERY 12 HOURS. PHARMACY WILL FOLLOW PT DAILY LONG PT IS RECEIVING VANCOMYCIN. THANK YOU
[2022-08-15 08:11] LABS: Basophils % 0.1 % (0.1-2.0); Eosinophils # 0.1 K/mm3 (0.0-0.4); Hematocrit 39.9 % (42.0-52.0); Hemoglobin 12.9 g/dL (14.1-18.0); Lymphocytes # 0.7 K/mm3 (0.7-4.5); Lymphocytes % 7.7 % (10-50); Mean Corpuscular HGB Conc 32.3 g/dL (31.8-35.4); Mean Corpuscular Hemoglobin 29.9 pg (27.0-31.2); Mean Corpuscular Volume 92.5 fl (80-94); Mean Platelet Volume 7.9 fl (7.4-10.4); Monocytes # 0.7 K/mm3 (0.1-1.0); Monocytes % 7.6 % (1.7-9.3); Neutrophils # 7.9 K/mm3 (1.8-7.8); Neutrophils % 83.6 % (37.0-80.0); Platelet Count 194 K/mm3 (142-424); Red Blood Count 4.31 M/mm3 (4.60-6.20); Red Cell Distribution Width 13.3 % (11.5-17.5); White Blood Count 9.4 K/mm3 (4.8-10.8)
--- NOTE | 2022-08-15 08:29 | HMH.PHAINT1 ---
Pharmacy Intervention Comments: Home medication list verified through med list from recent cardiology office visit.
--- NOTE | 2022-08-15 15:41 | EXP.DC.SUM ---
General Admission date:: 08/15/22 Discharge date: 08/15/22 HPI HPI HPI: Mr. Whitney is a 77-year-old male with a past medical history of CAD, HTN, BPH, Hyperlipidemia. He presents to [facility] due to a 2-3 day history of progressive weakness, increase frequency of urination, back pain, nausea and vomiting. He reports undergoing a TURP [address] Vázquez in [facility]. In the ER, the patient was noted to be febrile on admission with a Temperature of 102.6, WBC on CBC was elevated at 14.8, CT of the abdomen and pelvis was concerning for right pyelonephiritis and was also noted to show an enlarged prostate and suspected 3 cm abscess of the left lobe. ER Physician Dr. Petit called and spoke with Dr. Vázquez from [facility] who was happy to see the patient in consult, however there were no beds available at the hospitals where he practiced. was consulted and there were also no beds available. The patient will be admitted, started on antibiotics overnight. The patient was admitted with initial impression: Sepsis and Prostate abscess. Past medical history of hypertension, BPH, hyperlipidemia. Two-vessel CABG in 2016. Hospital Course Hospital Course Hospital Course: 77-year-old male who underwent a TURP 2-weeks prior to presentation presents with weakness, nausea, vomiting, increased frequency of urination, CT findings concerning for right pyelonephritis and prostate abscess. ER discussed case with urology at [facility] (Dr. Vázquez). Attempts to transfer overnight were unsuccessful due to no beds. Patient has graciously been accepted today for transfer for further management. Patient admitted to medically managed in the meantime. Problems addressed as follows: - Sepsis (POA) -Prostate abscess -Pyelonephritis Sepsis criteria met on admission:? Temperature 102.6, WBC 14.8, CT with concerns for prostate abscess and right pyelonephritis. Urine culture and blood culture obtained. Still pending at this time. Received IV fluids. Started on antibiotics including vancomycin, levofloxacin, metronidazole. Symptoms defervesced by morning with improvement in white count to 9.4 and resolution of fever. Tolerating p.o. intake at this time. Patient not having any nausea on morning rounds. Denies any CVA tenderness on exam. No Mcknight in place, voiding independently. Urine cloudy but no hematuria - Hypertension Holding blood pressure medications with concern for sepsis and borderline low blood pressures initially. - BPH Continue Flomax, Finesteride - Hyperlipidemia Continue Statin Patient showing some improvement to medical management. Will transfer to [facility] for urologic consult and more definitive care. Exam Data for Last 24 hours Vital signs and Labs for Last 24 Hours: Temp Pulse Resp BP Pulse Ox 98.7 F 69 18 139/80 97 08/15/22 11:28 08/15/22 11:28 08/15/22 11:28 08/15/22 11:28 08/15/22 11:28 Laboratory Results - last 24 hr 08/14/22 21:19: WBC 14.8 H, RBC 4.64, Hgb 13.7 L, Hct 42.3, MCV 91.2, MCH 29.5, MCHC 32.4, RDW 13.3, Plt Count 233, MPV 8.1, Neut % (Auto) 84.4 H, Lymph % (Auto) 6.7 L, [place] % (Auto) 8.7, Eos % (Auto) 0.1, Baso % (Auto) 0.1, Neut # (Auto) 12.5 H, Lymph # (Auto) 1.0, [place] # (Auto) 1.3 H, Eos # (Auto) 0.0, Baso # (Auto) 0.0 08/14/22 21:19: Sodium 130 L, Potassium 3.5, Chloride 93 L, Carbon Dioxide 26, Anion Gap 14.5, BUN 15, Creatinine 1.20, Estimated Creat Clear 62, Estimated GFR 59, Est GFR ( Amer) 71, Glucose 122 H, Calcium 8.0 L, Total Bilirubin 0.9, AST 45, ALT 37, Alkaline Phosphatase 101, C-Reactive Protein 115.1 H, Total Protein 6.6, Albumin 2.9 L, Globulin 3.7 H, Albumin/Globulin Ratio 0.8 L 08/14/22 21:19: ESR 51 H 08/14/22 21:19: Lactate 1.3 08/14/22 21:19: Procalcitonin 0.345 08/14/22 21:19: SARS-CoV-2 (PCR) Not detected, Influenza A Untype (PCR) Not detected, Influenza Type B (PCR) Not detected 08/14/22 21:28: Urine Color Yellow, Urin
== END 2022-08-15 18:23 | disposition short-term general hospital (02) | DRG 872 ==
LOC: ER 08-15 01:08 → 2ND 08-15 01:12
PROVIDERS: Nurse Practitioner Family; Admitting Provider Internal Medicine Adolescent Medicine; Emergency Provider Emergency Medicine; PCP Family Medicine; Visit Provider Internal Medicine Adolescent Medicine
DX: A41.9 Sepsis, unspecified organism (principal); N41.2 Abscess of prostate; N10 Acute pyelonephritis; I10 Essential (primary) hypertension; N40.0 Benign prostatic hyperplasia without lower urinary tract symptoms; E78.5 Hyperlipidemia, unspecified; Z79.899 Other long term (current) drug therapy; I25.2 Old myocardial infarction; I25.119 Atherosclerotic heart disease of native coronary artery with unspecified angina pectoris; Z95.1 Presence of aortocoronary bypass graft
CPT/HCPCS: 36415; 71046; 74177; 76770; 80053; 81001; 83605; 84145; 85025; 85651; 86140; 87040; 87081; 87086; 87186; 87636; 99285; C9803; J1956; Q9967; U0003; U0005

== ENCOUNTER 2024-07-30 15:50 | Outpatient (RCR) | payer MEDICARE, SELFPAY | END 2024-07-30 23:59 | disposition home or self-care (01) | LOC: PT 15:50 | PROVIDERS: PCP Family Medicine; Visit Provider Physical Medicine & Rehabilitation | DX: S06.6X Traumatic subarachnoid hemorrhage (principal); S42.022D Displaced fracture of shaft of left clavicle, subsequent encounter for fracture with routine healing; S01.01XD Laceration without foreign body of scalp, subsequent encounter; M79.2 Neuralgia and neuritis, unspecified; I10 Essential (primary) hypertension; I25.10 Atherosclerotic heart disease of native coronary artery without angina pectoris; E78.5 Hyperlipidemia, unspecified; M53.87 Other specified dorsopathies, lumbosacral region; V80.010D Animal-rider injured by fall from or being thrown from horse in noncollision accident, subsequent encounter; R26.89 Other abnormalities of gait and mobility; R41.89 Other symptoms and signs involving cognitive functions and awareness | CPT/HCPCS: 97163 ==